=== PATIENT | female | born 1945 | race African-American/Black ===

== ENCOUNTER 2017-05-29 15:03 | Inpatient (IN) ==
--- NOTE | 2017-05-29 17:27 | Hospitalist History & Physical ---
<Elin Tobias - Last Filed: 05/29/17 18:09> Assessment and Plan - Time spent with patient Time spent with patient: Greater than 30 minutes (1) Shortness of breath Status: Acute Assessment and plan: Admit 05/29/17 _ direct admit from [facility] for SOB, increase fatigue, anasarca Stage I Renal Insufficiency - seen in February by Dr Pressley and started on Lasix 40mg daily - patient reports has not helped EKG - (at clinic) - old infarct - repeat EKG SOB - supplemental oxygen therapy, Lasix IV 40mg daily HTN: - will need to reconcile medications once placed in the chart DM - will need to reconcile medications once placed in the chart - sliding scale and accuchecks Anasarca/SOB - will consult cardiology for assistance and greatly appreciate assistance (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 labs Further recommendations of care to follow per Dr Foote 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: Yes (2) Fatigue Status: Acute 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: Yes (3) Anasarca Status: Acute 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: Yes History of Present Illness Chief complaint: shortness of breath, anasarca, fatigue History of present illness: Ms. Jolly is a 72 year old black female w/PMHx DM, HTN presented to [facility] Room 527 as direct admit from [facility] (shan boyd np) for further evaluation of increase fatigue, worsening shortness of breath and anasarca x3-4 days. She denies chest pain, nausea, vomiting, fever, or chills. She denies any problems with urination or bowel movements. Clinic: reports weight in February was 109 and today weight is 130 lbs labs BUN 17 and creatinine 0.85, H&H 9.3 & 29.1, WBC 4.8, Albumin 2.5. 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 CXR: bilateral pleural effusions. Liver panel was reported within normal. She was seen by Dr Pressley in February for Stage I Renal Insufficiency and started on Lasix 40mg daily for increased swelling but patient reports that it has not helped with her swelling. She denies smoking, alcohol or drug use. She ambulates without any assistance. She reports her 2 daughters live with her and 2 grandchildren. 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 Once her medications have been put into the system, they will need to be reviewed and reconciliation to follow. Allergies Allergy/AdvReac Type Severity Reaction Status Date / Time No Known Allergies Allergy Verified 05/29/17 16:33 Medical,Surgical,& Family Hx - Medical History Cardio: History of: Hypertension Endocrine: History of: Diabetes Mellitus (NIDDM) Renal: History of: Renal Problems (Stage I renal insufficiency) - Social History Smoking Status: Never smoker Frequency of Alcohol Use: None Type of Drug Use: None Marital Status: Single Lives With:: Children Functional capacity: independent ambulation 12 point system: reviewed and no additional remarkable complaints except as stated - Constitutional Constitutional: Present: fatigue. Absent: anorexia, chills, fever(s) - Cardiovascular Cardiovascular: Present: dyspnea on exertion, edema (2+ edema bilateral ). Absent: chest pain at rest, chest pain with activity - Gastrointestinal Gastrointestinal: Absent: abdominal pain, nausea, vomiting - Genitourinary Genitourinary: Absent: difficulty urinating, dysuria Exam - Constitutional General appearance: no acute distress - Head Head exam: Present: normal inspection - Eye Eye exam: Present: EOMI Pupils: Present: ANTONIO - Neck Neck exam: Present: normal inspection. Absent: thyromegaly - Respiratory Respiratory exam: Present: clear to auscultation bilaterally. Absent: rales, rhonchi, stridor, wheezes - Cardiovascular Cardiovascular exam: Present: regular rate and rhythm - GI/Abdominal GI/Abdominal exam: Present: normal bowel sounds, distended, soft. Absent: firm , guarding, tenderness, rebound - Extremities Exam Extremities exam: Present: full ROM, edema (2+ edema) - Neurological Exam Neurological exam: Present: alert, oriented X3, CN II-XII intact - Psychiatric Psychiatric exam: Present: normal affect, normal mood. Absent: agitated, anxious - Skin Skin exam: Present: normal color, warm, dry Results - Labs Lab Results: I have reviewed the past 24 hour labs Labs: Labs performed at Clinic [facility] - to be scanned into records Will repeat labs, chest xray - Diagnostic Findings Procedure: Chest x-ray: other (clininc reports bilateral pleural effusions) <Fidel Foote - Last Filed: 05/29/17 18:45> History of Present Illness History of present illness: Ms. Jolly is a 72 year old female Exam - Constitutional Vitals: Period Temp Pulse Resp BP Sys/Galvan Pulse Ox Last 24 Hr 97.3 F 66 20 142/80 95
[2017-05-29] MEDS ORDERED: DEXTROSE 50% 25 GM/50 ML VIAL IV PRN (17:57)
[2017-05-29] MEDS ORDERED: GLUCAGON 1 MG VIAL IM PRN (17:57)
[2017-05-29] MEDS ORDERED: ACETAMINOPHEN 325 MG TABLET PO PRN (18:04)
[2017-05-29] MEDS ORDERED: ONDANSETRON 4 MG/2 ML VIAL IV PRN (18:04)
--- NOTE | 2017-05-29 18:17 | Nephrology Consult Note ---
History of Present Illness Chief complaint: Anasarca History of present illness: Ms. Jolly is a 72 year old female with a history of hypertension diabetes who I have seen in clinic on one visit for lower extremity swelling at that time patient serum creatinine was noted to be 1. She is admitted now with increased swelling and has not gotten relief with oral diuretic therapy. Patient's history of diabetes dates back at least 5-7 years. There is no history of NSAID use. No history of change in medications. Patient reports that the lower extremity swelling has continued to worsen to where she is no swelling up above her navel. She further describes shortness of breath. Of note, patient has a daughter who is a dialysis patient and also deals with dramatic anasarca and difficult to dialyze due to low blood pressure. At this time nephrology been asked to further assess and give input for further workup of the increased swelling. 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 There is no tobacco history. Again no NSAID use history. Recommend SPEP and UPEP KIRSTEN. Agree with CT scan. UA. Allergies Allergy/AdvReac Type Severity Reaction Status Date / Time No Known Allergies Allergy Verified 05/29/17 16:33 Medical,Surgical,& Family Hx - Medical History Cardio: History of: Hypertension Endocrine: History of: Diabetes Mellitus (NIDDM) Renal: History of: Renal Problems (Stage I renal insufficiency) - Surgical History Cardiac Surgeries: Patient Denies: Cardiac Catheterization - Family History Family History: Reports;: Family Diabetes, Family Heart Disease - Social History Smoking Status: Never smoker Frequency of Alcohol Use: None Type of Drug Use: None Review of Systems Constitutional: fatigue, lethargy, no anorexia Cardiovascular: no chest pain at rest Respiratory: dyspnea Gastrointestinal: no abdominal pain Exam - Vital Signs Vital signs: Period Temp Pulse Resp BP Sys/Galvan Pulse Ox Last 24 Hr 97.3 F 66 20 142/80 95 - General Appearance General appearance: fatigue, frail EENT: ATNC Neck: supple Respiratory: clear Cardiology: edema (3+), regular rate, regular rhythm Gastrointestinal: normoactive bowel sounds, no tenderness Integumentary: no rash Neurologic: alert and oriented x3 Musculoskeletal: no clubbing Psychiatric: mood/affect appropriate Assessment and Plan (1) Diabetes Status: Chronic 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: Yes Qualifiers: Diabetes mellitus type: type 2 Chronic kidney disease stage: stage 2 (mild ) (2) Anasarca Status: Acute Assessment and plan: Agree with workup for CT scan. Recommend a UA. Also SPEP and UPEP. As well as an urine KIRSTEN. CEA. CA 125. Add metolazone 5 mg twice daily. Agree with Lasix therapy. 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: Yes (3) Fatigue Status: Acute 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: Yes
[2017-05-29] MEDS ORDERED: ENOXAPARIN 30 MG/0.3 ML SYRINGE SUBCUT SCH (18:30)
[2017-05-29 19:06] LABS: Basophils % 0.5 % (0.0-0.8); Eosinophils # 0.1 10*3/uL (0.0-0.87); Eosinophils % 1.4 % (0.00-10.9); Hematocrit 29.4 VOL% (35.7-47.0); Hemoglobin 9.3 GM/DL (12.0-16.0); Immature Granulocytes % 0.2 %; Immature Granulocytes Absolute 0.01 #; Lymphocytes # 0.7 10*3/uL (1.4-4.0); Lymphocytes % 15.7 % (21.3-54.2); Mean Corpuscular HGB Conc 31.6 GM/DL (32-36); Mean Corpuscular Hemoglobin 26 PG (27-34); Mean Corpuscular Volume 82.6 FL (87-102); Mean Platelet Volume 10.3 FL (9.6-12.0); Monocytes # 0.3 10*3/uL (0.11-0.8); Monocytes % 6.9 % (1.7-12.7); Neutrophils # 3.2 10*3/uL (1.4-7.4); Neutrophils % 75.3 % (38.7-73.9); Platelet Count 271 T/CUMM (130-400); Red Blood Count 3.56 MC/CUMM (3.8-5.5); Red Cell Distribution Width 16.2 % (9.3-17.3); White Blood Count 4.2 T/CUMM (4-12)
[2017-05-29 19:22] LABS: Ammonia < 10 UMOL/L (11-32)
[2017-05-29 19:28] LABS: Alanine Aminotransferase 10 U/L (13-56); Albumin 2.5 G/DL (3.4-5.0); Alkaline Phosphatase 82 U/L (45-117); Aspartate Amino Transferase 18 U/L (0-37); Blood Urea Nitrogen 18 MG/DL (7-18); Calcium 9.4 MG/DL (8.5-10.1); Glucose 75 MG/DL (74-106); Magnesium 2.2 MG/DL (1.8-2.4); Osmolality,Calculated 275.7 MOS/KG (273-304); Potassium 3.9 MMOL/L (3.5-5.1); Sodium 138 MMOL/L (136-145); Total Protein 7.5 G/DL (6.4-8.3)
[2017-05-29 19:29] LABS: Troponin I Only < 0.015 NG/ML (0.00-0.045)
[2017-05-29 19:33] LABS: Risk Ratio 2.26; Thyroid Stimulating Hormone 1.06 uIU/ml (0.358-3.74); VLDL CHOLESTEROL 14.4 MG/DL
[2017-05-29 19:39] LABS: Total Protein 7.5 G/DL (6.4-8.3)
--- NOTE | 2017-05-29 20:24 | CT Report ---
Exam: CT abdomen and pelvis with intravenous contrast Clinical History: 72 years,Female, ascites abdominal pain, generalized Technique: Axial computed tomography images of the abdomen and pelvis with intravenous contrast. All CT scans at this facility use one or more dose reduction techniques. Automated exposure control, MA/KV adjustment per patient size (including targeted exam Square dose is matched to indication) or iterative reconstruction technique Comparison: No relevant comparisons Findings: Lower thorax: Trace bilateral pleural effusions with bibasilar atelectasis. Abdomen: Liver: Unremarkable Gallbladder and bile ducts: Unremarkable. No calcified stones. No ductal dilatation. Pancreas: Pancreas is normal. Spleen: Spleen is normal. Adrenals: No adrenal mass. Kidneys and ureters: Normal in size, echotexture and morphology. No hydronephrosis. No ureteral calculus. Stomach and bowel: No evidence of acute gastritis, colitis or enteritis. No bowel obstruction. Appendix: No primary or secondary signs to suggest appendicitis. Pelvis: Bladder: Decompressed Reproductive: Uterus is enlarged and heterogeneous., Irregular in morphology with extensive calcifications and nodularity Abdomen and pelvis: Intraperitoneal space: Large volume ascites displacing solid organs and bowel Bones/joints: No acute osseous abnormality. Soft tissues: No mass Vasculature: No aortic aneurysm. Atheromatous calcifications noted along the aorta and branch vessels. Lymph nodes: No adenopathy Impression: 1. Large volume ascites displacing the bowel and visceral organs 2. Markedly irregular and enlarged uterus with extensive calcifications. Likely all fibroids. Correlate with dedicated ultrasound PROCEDURE INTERPRETED AT [facility] DEPARTMENT OF RADIOLOGY Final Report Signed by: Samir Gilbert MD
[2017-05-29] MEDS: metOLazone 5 MG TABLET PO SCH (20:53)
[2017-05-29] MEDS: INSULIN LISPRO 100 UNIT/ML SUBCUT SCH (20:53)
[2017-05-29] MEDS: ENOXAPARIN 40 MG/0.4 ML SYRINGE SUBCUT SCH (20:53)
[2017-05-30 03:35] LABS: Basophils % 1.1 % (0.0-0.8); Eosinophils # 0.1 10*3/uL (0.0-0.87); Eosinophils % 2.5 % (0.00-10.9); Hematocrit 27.3 VOL% (35.7-47.0); Hemoglobin 8.7 GM/DL (12.0-16.0); Immature Granulocytes % 0.3 %; Immature Granulocytes Absolute 0.01 #; Lymphocytes # 0.8 10*3/uL (1.4-4.0); Lymphocytes % 20.7 % (21.3-54.2); Mean Corpuscular HGB Conc 31.9 GM/DL (32-36); Mean Corpuscular Hemoglobin 26 PG (27-34); Mean Corpuscular Volume 80.8 FL (87-102); Mean Platelet Volume 9.7 FL (9.6-12.0); Monocytes # 0.4 10*3/uL (0.11-0.8); Monocytes % 11.6 % (1.7-12.7); Neutrophils # 2.3 10*3/uL (1.4-7.4); Neutrophils % 63.8 % (38.7-73.9); Platelet Count 260 T/CUMM (130-400); Red Blood Count 3.38 MC/CUMM (3.8-5.5); Red Cell Distribution Width 16.2 % (9.3-17.3); White Blood Count 3.6 T/CUMM (4-12)
[2017-05-30 04:12] LABS: Magnesium 2.1 MG/DL (1.8-2.4); Osmolality,Calculated 276.7 MOS/KG (273-304); Potassium 3.9 MMOL/L (3.5-5.1)
[2017-05-30 05:28] LABS: Immunoglobulin G (Chem) 2550 MG/DL (700-1600); Total Protein (Chem) 7.5 G/DL (6.4-8.3)
[2017-05-30 05:29] LABS: Immunoglobulin A (Chem) 344 MG/DL (70-400); Immunoglobulin M (Chem) 89 MG/DL (40-230)
[2017-05-30 07:49] LABS: Albumin (SPE) Rel % 40.5 %; Alpha 1 (SPE) 0.3 G/DL (0.1-0.4); Alpha 1 (SPE) Rel % 3.7 %; Alpha 2 (SPE) 0.8 G/DL (0.4-1.0); Alpha 2 (SPE) Rel % 10.9 %; Beta (SPE) 0.9 G/DL (0.5-1.1); Beta (SPE) Rel % 11.4 %; Gamma (SPE) 2.5 G/DL (0.7-1.7); Gamma (SPE) Rel % 33.2 %
--- NOTE | 2017-05-30 08:28 | Nephrology Progress Note ---
Nephrology - PN: Subj Interval history: Ms. Jolly is seen in follow-up of her fluid retention. She has good renal function with a normal creatinine. Her serum albumin is 2.5. She does have tense ascites and 2+ lower extremity edema. The abdomen is tense and I think she would benefit from a therapeutic paracentesis. We will also send that fluid for albumin to compare to her serum albumin. Exam (PN)-Nephrology - Vital Signs Vital signs: Period Temp Pulse Resp BP Sys/Galvan Pulse Ox Last 24 Hr 97.1 F-97.5 F 66-90 15-20 137-142/75-81 95-96 - Lab 05/30/17 02:29 05/30/17 02:29 Most recent lab results Calcium 9.0 MG/DL (8.5-10.1) 05/30/17 02:29 Magnesium 2.1 MG/DL (1.8-2.4) 05/30/17 02:29
[2017-05-30] MEDS: metOLazone 5 MG TABLET PO SCH ×2 (08:59→20:55)
[2017-05-30] MEDS: PANTOPRAZOLE 40 MG TABLET PO SCH (08:59)
[2017-05-30] MEDS: INSULIN LISPRO 100 UNIT/ML SUBCUT SCH ×4 (09:03→20:55)
--- NOTE | 2017-05-30 11:11 | Consultation ---
Assessment and Plan (1) Shortness of breath Status: Acute 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: Yes (2) Fatigue Status: Acute 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: Yes (3) Anasarca Status: Acute 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: Yes (4) Diabetes Status: Chronic 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: Yes Qualifiers: Diabetes mellitus type: type 2 Chronic kidney disease stage: stage 2 (mild ) (5) Enlarged uterus Status: Acute Assessment and plan: Pelvic ultrasound ordered to better assess uterine size, endometrial cavity and adnexa. We will continue to follow. 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: Yes History of Present Illness - Data of Consult Patient: new to practice Consult date: 05/30/17 - Consult Narrative Reason for consult: Rule out APPLE PICKING SUPERVISOR malignancy History of present illness: Ms. Jolly is a 72 year old female postmenopausal female who was admitted secondary to anasarca and wasting. APPLE PICKING SUPERVISOR was consulted secondary to concern for APPLE PICKING SUPERVISOR related malignancies. Has had a CT scan that shows an irregularly enlarged uterus. Patient denies abdominal pain or vaginal bleeding. She reports significant weight loss over the last several months. CC: Fidel Foote MD - Home Medications and Allergies Allergies/Adverse Reactions: Allergies Allergy/AdvReac Type Severity Reaction Status Date / Time No Known Allergies Allergy Verified 05/29/17 16:33 12 point system: reviewed and no additional remarkable complaints except as stated () - Constitutional Constitutional: Present: anorexia, weight loss Medical,Surgical,& Family Hx - Medical History Cardio: History of: Hypertension Endocrine: History of: Diabetes Mellitus (NIDDM) Renal: History of: Renal Problems (Stage I renal insufficiency) - Surgical History Cardiac Surgeries: Patient Denies: Cardiac Catheterization - Family History Family History: Reports;: Family Diabetes, Family Heart Disease - Social History Smoking Status: Never smoker Frequency of Alcohol Use: None Type of Drug Use: None Exam - Constitutional Vitals: Period Temp Pulse Resp BP Sys/Galvan Pulse Ox Last 24 Hr 97.1 F-97.5 F 66-90 14-99 124-158/62-82 94-98 General appearance: no acute distress - Head Head exam: Present: normocephalic - Neck Neck exam: Present: normal inspection - Respiratory Respiratory exam: Present: clear to auscultation bilaterally - Cardiovascular Cardiovascular exam: Present: regular rate and rhythm - GI/Abdominal GI/Abdominal exam: Present: normal bowel sounds, soft, other (Uterus irregularly enlarged approximately 12 week size with very irregular contour. No gross abnormalities noted to the adnexa.) - Extremities Exam Extremities exam: Present: normal inspection - Back Exam Back exam: Present: normal inspection - Neurological Exam Neurological exam: Present: alert, oriented X3 - Psychiatric Psychiatric exam: Present: normal affect, normal mood - Skin Skin exam: Present: normal color, warm Results - Labs CBC & BMP: 05/30/17 02:29 05/30/17 02:29
--- NOTE | 2017-05-30 14:08 | Cardiology Consult Note ---
<Valentine Irwin E - Last Filed: 05/30/17 13:45> Assessment and Plan - Time spent with patient Time spent with patient: Greater than 30 minutes (1) Hypertension Status: Chronic Assessment and plan: SEE PLAN OF CARE LISTED BELOW 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: Yes (2) Shortness of breath Status: Acute Assessment and plan: SEE PLAN OF CARE LISTED BELOW 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: Yes (3) Fatigue Status: Acute Assessment and plan: SEE PLAN OF CARE LISTED BELOW 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: Yes (4) Anasarca Status: Acute Assessment and plan: SEE PLAN OF CARE LISTED BELOW 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: Yes (5) Diabetes Status: Chronic Assessment and plan: SEE PLAN OF CARE LISTED BELOW 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: Yes Qualifiers: Diabetes mellitus type: type 2 Chronic kidney disease stage: stage 2 (mild ) (6) Enlarged uterus Status: Acute Assessment and plan: SEE PLAN OF CARE LISTED BELOW 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: Yes History of Present Illness - Data of Consult Patient: new to practice Consult date: 05/30/17 Requesting Physician: Fidel Foote Primary care physician: Sheri Gtz - Consult Narrative Reason for consult: anasarca, SOB History of present illness: KOSHER BUTCHER: DR. CARD ([facility]) SUMMARY: Ms. Jolly, 72BF, with risk factors significant for: hypertension, diabetes, sedentary lifestyle. Admitted May 29, 2017 for anasarca, worsening shortness of breath and fatigue. Cardiology was consulted for these complaints. Patient reports over the past week she has experienced sudden increase in girth of her abdomen and swelling of her lower extremities. She reports this is been occurring intermittently over the past several months but worsened significantly over the past week. She is not uncomfortable with the distention. She also reports she has been losing weight recently no eating her usual amount of food. She reports she is usually somewhat active and can perform her activities without chest pain, heaviness, tightness. She takes care of her disabled daughter and can perform these activities without complaints concerning for angina. Her shortness of breath has worsened over the past week. Denies fevers or chills. CT abdomen reveals a large volume ascites she has undergone paracentesis this morning. She also has a markedly irregular and enlarged uterus. Dr. Bond Has seen patient this morning and has concern for possible cancer. Pelvic ultrasound has been ordered. Cardiology standpoint, I will order an echocardiogram to evaluate for any cardiac contributions. Venous ultrasound lower extremities, chest x-ray and EKG. She is currently taking Lovenox. Strict I&O and daily weights. Currently taking Zaroxolyn. Will further discuss with Dr. Card and await additional recommendations. MAY 30, 2017: 1. ANASARCA - may be related to an obstructive process. However, will check venous ultrasound of bilateral lower extremities for DVT. She has received 1 dose of IV Lasix. Zaroxolyn continues. Will reinforce importance of strict I&O and daily weights. Echocardiogram 2. ENLARGED UTERUS - Ultrasound of uterus is pending. Dr. Bond is following. 3. HYPERTENSION - well controlled. Will adjust medications accordingly during hospital stay 4. DIABETES - blood glucose levels well controlled. CC: Fidel Foote MD - Home Medications and Allergies Allergies/Adverse Reactions: Allergies Allergy/AdvReac Type Severity Reaction Status Date / Time No Known Allergies Allergy Verified 05/29/17 16:33 Review of systems: REVIEW OF SYSTEMS: - Constitutional Constitutional: Present: Fatigue. Weight loss unintentional. Absent: syncope , anorexia, night sweats - EENT Eyes: Absent: blurry vision, loss of vision, diplopia Ears: Absent: decreased hearing, ear pain, ear discharge - Cardiovascular Cardiovascular: Denies: chest pain with exertion, palpitations. Lower extremity edema bilaterally. Absent: chest pain with deep breath, claudication - Respiratory Respiratory: Present: VIRK, shortness of breath at rest. Absent: wheezing, hemoptysis, change in phlegm color - Gastrointestinal Gastrointestinal: Present: constipation and abdominal fullness. Absent: abdominal pain, hematemesis, hematochezia, melena, change in bowel habits, nausea - Genitourinary Genitourinary: Absent: difficulty urinating, dysuria, urinary hesitancy, flank pain - Musculoskeletal Musculoskeletal: Present: back pain Absent: joint swelling, muscle cramps, muscle weakness - Neurological Neurological: Present: normal gait without frequent falls. Absent: dizziness, hemiparesis - Psychiatric Psychiatric: Absent: anxiety, depression, difficulty concentrating - Endocrine Endocrine: Absent: cold intolerance, heat intolerance, polyuria, polyphagia, polydipsia - Hematologic/Lymphatic Hematologic/Lymphatic: Present: easy bruising. Absent: easy bleeding -Integumentary Integumentary: Absent: lesions, rashes, skin breakdown Medical,Surgical,& Family Hx - Medical History Cardio: History of: Hypertension No history of: CAD Endocrine: History of: Diabetes Mellitus (NIDDM) Renal: History of: Renal Problems (Stage I renal insufficiency) - Surgical History Cardiac Surgeries: Patient Denies: Cardiac Catheterization - Family History Family History: Reports;: Family Diabetes, Family Heart Disease - Social History Smoking Status: Never smoker Have you smoked in the last 12 months: No Frequency of Alcohol Use: None Type of Drug Use: None Physical Examination Vital Signs Temp Pulse Resp BP Pulse Ox 97.3 F L 66 20 142/80 95 05/29/17 16:32 05/29/17 16:32 05/29/17 16:32 05/29/17 16:32 05/29/17 16:32 Exam: General: [Appears well with no apparent distress.] [Pleasant and cooperative. ] [Appears comfortable.] HEENT: [PERRL, normocephalic, atraumatic. Mucous membranes moist. No jaundice noted. Conjunctiva moist and clear, sclerae anicteric] Neck: No obvious JVD/HJR, no thyromegaly or lymphadenopathy noted. No carotid bruit appreciated Cardiac: [Regular rate and rhythm.] [No obvious murmur rub or gallop.] Lungs: [Clear to auscultation without accessory muscle use to assist the respiratory pattern.] Not requiring oxygen Abdomen: Soft, slightly distended. Bowel sounds normoactive. Nontender and nondistended. No abdominal bruit or thrill noted. No masses noted. Musculoskeletal: Mild fluid collection. Decreased range of motion is noted. Extremities: No clubbing, cyanosis noted. [2+ bilateral lower extremity edema noted.] Upper extremity pulses 2+. Lower extremity pulses 2+. Capillary refill less than 3 seconds. Skin: No unusual lesions or rashes. No skin breakdown appreciated. Neuro: Awake, alert and oriented 3. Moves all extremities well without hemiparesis or paralysis. No essential tremor is appreciated. Result/EKG - Labs CBC & BMP: 05/30/17 02:29 05/30/17 02:29 Lab Results: I have reviewed the past 24 hour labs Labs: Laboratory Results - last 24 hr 05/29/17 05/29/17 05/29/17 16:51 18:34 18:35 WBC RBC Hgb Hct MCV MCH MCHC RDW Plt Count MPV Neut % (Auto) Lymph % (Auto) Bates % (Auto) Eos % (Auto) Baso % (Auto) Neut # (Auto) Lymph # (Auto) Bates # (Auto) Eos # (Auto) Baso # (Auto) Immature Gran % Nucleated RBC % Immature Gran # Nucleated RBCs # Immature Plt Fraction INR PT Patient/Control Mix Sodium Potassium Chloride Carbon Dioxide Anion Gap BUN Creatinine GFR Calculation BUN/Creatinine Ratio Glucose POC Glucose 104 Hemoglobin A1c Calculated Osmolality Calcium Magnesium Total Bilirubin AST ALT Alkaline Phosphatase Ammonia Total Creatine Kinase Troponin I B-Natriuretic Peptide Total Protein Albumin Globulin Albumin/Globulin Ratio Triglycerides Cholesterol LDL Cholesterol VLDL Cholesterol HDL Cholesterol Heart Disease Risk Ratio Carcinoembryonic Ag CA 19-9 Antigen 13.9 TSH 3rd Generation Fluid Tot Cell Count Fluid Lymphocytes Peritoneal Albumin Dialysate WBC Dialysate RBC IgG IgG Total 2550 H IgA IgA Total 344 IgM IgM Total 89 Pro Electrophoresis Int See comment Serum Total Protein PEP 7.5 Albumin (PEP) 3.0 L Albumin (relative) 40.5 Ysmvq-5-Cjxpcjbb 0.3 Lnmmn-0-Gkkknsuw rel 3.7 Malet-9-Ipfyxrpe 0.8 Woivi-4-Hizieytj rel 10.9 Igno-1-Vwcuzeth 0.9 Fena-2-Iqzxaehg rel 11.4 Gamma Globulins 2.5 H Gamma Globulins rel 33.2 KIRSTEN Interpretation See comment 05/29/17 05/29/17 05/29/17 18:36 18:37 18:37 WBC RBC Hgb Hct MCV MCH MCHC RDW Plt Count MPV Neut % (Auto) Lymph % (Auto) Bates % (Auto) Eos % (Auto) Baso % (Auto) Neut # (Auto) Lymph # (Auto) Bates # (Auto) Eos # (Auto) Baso # (Auto) Immature Gran % Nucleated RBC % Immature Gran # Nucleated RBCs # Immature Plt Fraction INR 1.0 PT Patient/Control Mix 11.0 Sodium Potassium Chloride Carbon Dioxide Anion Gap BUN Creatinine GFR Calculation BUN/Creatinine Ratio Glucose POC Glucose Hemoglobin A1c Calculated Osmolality Calcium Magnesium Total Bilirubin AST ALT Alkaline Phosphatase Ammonia Total Creatine Kinase Troponin I B-Natriuretic Peptide Total Protein 7.5 Albumin Globulin Albumin/Globulin Ratio Triglycerides 72 Cholesterol 183 LDL Cholesterol 89.0 VLDL Cholesterol 14.4 HDL Cholesterol 81 H Heart Disease Risk Ratio 2.26 Carcinoembryonic Ag CA 19-9 Antigen TSH 3rd Generation 1.060 Fluid Tot Cell Count Fluid Lymphocytes Peritoneal Albumin Dialysate WBC Dialysate RBC IgG 2550 H IgG Total IgA 344 IgA Total IgM 89 IgM Total Pro Electrophoresis Int Serum Total Protein PEP Albumin (PEP) Albumin (relative) Ucchv-6-Pzygjvrk Hxwyr-7-Xbcnragm rel Fmsjn-2-Gfxreptl Xxrao-2-Jepvylfn rel Wdgl-5-Xadsapne Ysre-5-Lixjkeyc rel Gamma Globulins Gamma Globulins rel KIRSTEN Interpretation 05/29/17 05/29/17 05/29/17 18:38 18:38 18:38 WBC 4.2 RBC 3.56 L Hgb 9.3 L Hct 29.4 L MCV 82.6 L MCH 26 L MCHC 31.6 L RDW 16.2 Plt Count 271 MPV 10.3 Neut % (Auto) 75.3 H Lymph % (Auto) 15.7 L Bates % (Auto) 6.9 Eos % (Auto) 1.4 Baso % (Auto) 0.5 Neut # (Auto) 3.2 Lymph # (Auto) 0.7 L Bates # (Auto) 0.3 Eos # (Auto) 0.1 Baso # (Auto) 0.0 Immature Gran % 0.2 Nucleated RBC % 0.0 Immature Gran # 0.01 Nucleated RBCs # 0.00 Immature Plt Fraction 0.0 INR PT Patient/Control Mix Sodium Potassium Chloride Carbon Dioxide Anion Gap BUN Creatinine GFR Calculation BUN/Creatinine Ratio Glucose POC Glucose Hemoglobin A1c Calculated Osmolality Calcium Magnesium Total Bilirubin AST ALT Alkaline Phosphatase Ammonia Total Creatine Kinase Troponin I B-Natriuretic Peptide 101 H Total Protein Albumin Globulin Albumin/Globulin Ratio Triglycerides Cholesterol LDL Cholesterol VLDL Cholesterol HDL Cholesterol Heart Disease Risk Ratio Carcinoembryonic Ag 0.7 CA 19-9 Antigen TSH 3rd Generation Fluid Tot Cell Count Fluid Lymphocytes Peritoneal Albumin Dialysate WBC Dialysate RBC IgG IgG Total IgA IgA Total IgM IgM Total Pro Electrophoresis Int Serum Total Protein PEP Albumin (PEP) Albumin (relative) Lnksy-0-Qzfbneft Iuoju-0-Dyfrchtp rel Bitnz-0-Cfdrkusf Jrbrx-4-Mtkeoifk rel Xfix-8-Upnuvkim Wjzy-2-Ltyuwfkt rel Gamma Globulins Gamma Globulins rel KIRSTEN Interpretation 05/29/17 05/30/17 05/30/17 18:41 02:29 02:29 WBC 3.6 L RBC 3.38 L Hgb 8.7 L Hct 27.3 L MCV 80.8 L MCH 26 L MCHC 31.9 L RDW 16.2 Plt Count 260 MPV 9.7 Neut % (Auto) 63.8 Lymph % (Auto) 20.7 L Bates % (Auto) 11.6 Eos % (Auto) 2.5 Baso % (Auto) 1.1 H Neut # (Auto) 2.3 Lymph # (Auto) 0.8 L Bates # (Auto) 0.4 Eos # (Auto) 0.1 Baso # (Auto) 0.0 Immature Gran % 0.3 Nucleated RBC % 0.0 Immature Gran # 0.01 Nucleated RBCs # 0.00 Immature Plt Fraction 0.0 INR PT Patient/Control Mix Sodium 138 Potassium 3.9 Chloride 102 Carbon Dioxide 31 Anion Gap 8.9 BUN 18 Creatinine 0.70 GFR Calculation 91 BUN/Creatinine Ratio 25.00 H Glucose 75 POC Glucose Hemoglobin A1c 6.0 Calculated Osmolality 275.7 Calcium 9.4 Magnesium 2.2 Total Bilirubin 0.80 AST 18 ALT 10 L Alkaline Phosphatase 82 Ammonia < 10 L Total Creatine Kinase 82 Troponin I < 0.015 B-Natriuretic Peptide Total Protein 7.5 Albumin 2.5 L Globulin 5.0 H Albumin/Globulin Ratio 0.5 L Triglycerides Cholesterol LDL Cholesterol VLDL Cholesterol HDL Cholesterol Heart Disease Risk Ratio Carcinoembryonic Ag CA 19-9 Antigen TSH 3rd Generation Fluid Tot Cell Count Fluid Lymphocytes Peritoneal Albumin Dialysate WBC Dialysate RBC IgG IgG Total IgA IgA Total IgM IgM Total Pro Electrophoresis Int Serum Total Protein PEP Albumin (PEP) Albumin (relative) Ukxhb-9-Fqqymgtr Xdoji-9-Jeqhzxij rel Dkjcy-6-Daardffo Hhuyp-6-Jvxliqha rel Juzc-5-Jteessql Ievu-2-Daazvuzy rel Gamma Globulins Gamma Globulins rel KIRSTEN Interpretation 05/30/17 05/30/17 05/30/17 02:29 09:00 09:03 WBC RBC Hgb Hct MCV MCH MCHC RDW Plt Count MPV Neut % (Auto) Lymph % (Auto) Bates % (Auto) Eos % (Auto) Baso % (Auto) Neut # (Auto) Lymph # (Auto) Bates # (Auto) Eos # (Auto) Baso # (Auto) Immature Gran % Nucleated RBC % Immature Gran # Nucleated RBCs # Immature Plt Fraction INR PT Patient/Control Mix Sodium 138 Potassium 3.9 Chloride 103 Carbon Dioxide 29 Anion Gap 9.9 BUN 18 Creatinine 0.70 GFR Calculation 91 BUN/Creatinine Ratio 25.00 H Glucose 103 POC Glucose 91 Hemoglobin A1c Calculated Osmolality 276.7 Calcium 9.0 Magnesium 2.1 Total Bilirubin AST ALT Alkaline Phosphatase Ammonia Total Creatine Kinase Troponin I B-Natriuretic Peptide Total Protein Albumin Globulin Albumin/Globulin Ratio Triglycerides Cholesterol LDL Cholesterol VLDL Cholesterol HDL Cholesterol Heart Disease Risk Ratio Carcinoembryonic Ag CA 19-9 Antigen TSH 3rd Generation Fluid Tot Cell Count Fluid Lymphocytes Peritoneal Albumin 2.5 Dialysate WBC Dialysate RBC IgG IgG Total IgA IgA Total IgM IgM Total Pro Electrophoresis Int Serum Total Protein PEP Albumin (PEP) Albumin (relative) Ixkot-6-Uowrcvvt Zilys-7-Szqyomka rel Nttwi-2-Zekiznem Btvfd-1-Mzyznyoa rel Tuyw-3-Defelait Vbzy-5-Qaxfxnmh rel Gamma Globulins Gamma Globulins rel KIRSTEN Interpretation 05/30/17 05/30/17 10:10 10:46 WBC RBC Hgb Hct MCV MCH MCHC RDW Plt Count MPV Neut % (Auto) Lymph % (Auto) Bates % (Auto) Eos % (Auto) Baso % (Auto) Neut # (Auto) Lymph # (Auto) Bates # (Auto) Eos # (Auto) Baso # (Auto) Immature Gran % Nucleated RBC % Immature Gran # Nucleated RBCs # Immature Plt Fraction INR PT Patient/Control Mix Sodium Potassium Chloride Carbon Dioxide Anion Gap BUN Creatinine GFR Calculation BUN/Creatinine Ratio Glucose POC Glucose 125 H Hemoglobin A1c Calculated Osmolality Calcium Magnesium Total Bilirubin AST ALT Alkaline Phosphatase Ammonia Total Creatine Kinase Troponin I B-Natriuretic Peptide Total Protein Albumin Globulin Albumin/Globulin Ratio Triglycerides Cholesterol LDL Cholesterol VLDL Cholesterol HDL Cholesterol Heart Disease Risk Ratio Carcinoembryonic Ag CA 19-9 Antigen TSH 3rd Generation Fluid Tot Cell Count 100 Fluid Lymphocytes 100 Peritoneal Albumin Dialysate WBC 1641 [place] [address] IgG IgG Total IgA IgA Total IgM IgM Total Pro Electrophoresis Int Serum Total Protein PEP Albumin (PEP) Albumin (relative) Gyoxg-9-Pbyktuoa Dpakr-8-Opepjwrz rel Phrxo-5-Gyizxnxo Vtmgf-0-Sjbwgldq rel Uzti-5-Zikmlkaa Uxuq-3-Lllhigmf rel Gamma Globulins Gamma Globulins rel KIRSTEN Interpretation - Diagnostic Findings Procedure: CT Abdomen and Pelvis: report reviewed by me <Za Card - Last Filed: 05/30/17 19:39> History of Present Illness - Consult Narrative History of present illness: I have personally interviewed and evaluated the patient, reviewed the chart and discussed medical decision-making with Practitioner Alida. I have read this note and agree with her documentation here in. I have reviewed her echocardiogram which shows preserved systolic function, mild to moderate valvular regurgitations. Overall she appears to have a noncardiac source of her lower extremity edema and pleural effusion. We will sign off, please reconsult for any dynamic cardiac issues that may arise. CC: Fidel Foote MD Physical Examination Vital Signs Temp Pulse Resp BP Pulse Ox 97.3 F L 66 20 142/80 95 05/29/17 16:32 05/29/17 16:32 05/29/17 16:32 05/29/17 16:32 05/29/17 16:32 Result/EKG - Labs CBC & BMP: 05/30/17 02:29 05/30/17 02:29 Labs: Laboratory Results - last 24 hr 05/29/17 05/29/17 05/29/17 14:36 14:36 14:36 WBC RBC Hgb Hct MCV MCH MCHC RDW Plt Count MPV Neut % (Auto) Lymph % (Auto) Bates % (Auto) Eos % (Auto) Baso % (Auto) Neut # (Auto) Lymph # (Auto) Bates # (Auto) Eos # (Auto) Baso # (Auto) Immature Gran % Nucleated RBC % Immature Gran # Nucleated RBCs # Immature Plt Fraction Sodium Potassium Chloride Carbon Dioxide Anion Gap BUN Creatinine GFR Calculation BUN/Creatinine Ratio Glucose POC Glucose Hemoglobin A1c Calculated Osmolality Calcium Magnesium Total Protein CA 19-9 Antigen Urine Color Yellow Urine Appearance Clear Urine pH 5.0 Ur Specific [place] 1.031 Urine Protein Negative Urine Glucose (UA) Negative Urine Ketones Negative Urine Blood Small Urine Nitrate Negative Urine Bilirubin Negative Urine Urobilinogen < 2.0 H Urine Leukocytes Negative Urine RBC <1 Urine WBC 1 Ur Squamous Epith Cells Occasional Hyaline Casts 26 Urine Mucus Occasional Ur Culture Indicated? Not indicated Ur Random Creatinine 68 U Random Total Protein 19 Fluid Tot Cell Count Fluid Lymphocytes Peritoneal Albumin Dialysate WBC Dialysate RBC IgG IgG Total IgA IgA Total IgM IgM Total Pro Electrophoresis Int Serum Total Protein PEP Albumin (PEP) Albumin (relative) Qvlly-5-Wbcjvmqb Gztcf-8-Ouwmcgdf rel Ykeub-4-Epusskzu Nqatc-2-Wxataast rel Xmjh-1-Opkqlrmr Egnk-9-Bhbeblhd rel Gamma Globulins Gamma Globulins rel KIRSTEN Interpretation 05/29/17 05/29/17 05/29/17 18:34 18:35 18:37 WBC RBC Hgb Hct MCV MCH MCHC RDW Plt Count MPV Neut % (Auto) Lymph % (Auto) Bates % (Auto) Eos % (Auto) Baso % (Auto) Neut # (Auto) Lymph # (Auto) Bates # (Auto) Eos # (Auto) Baso # (Auto) Immature Gran % Nucleated RBC % Immature Gran # Nucleated RBCs # Immature Plt Fraction Sodium Potassium Chloride Carbon Dioxide Anion Gap BUN Creatinine GFR Calculation BUN/Creatinine Ratio Glucose POC Glucose Hemoglobin A1c Calculated Osmolality Calcium Magnesium Total Protein 7.5 CA 19-9 Antigen 13.9 Urine Color Urine Appearance Urine pH Ur Specific [place] Urine Protein Urine Glucose (UA) Urine Ketones Urine Blood Urine Nitrate Urine Bilirubin Urine Urobilinogen Urine Leukocytes Urine RBC Urine WBC Ur Squamous Epith Cells Hyaline Casts Urine Mucus Ur Culture Indicated? Ur Random Creatinine U Random Total Protein Fluid Tot Cell Count Fluid Lymphocytes Peritoneal Albumin Dialysate WBC Dialysate RBC IgG 2550 H IgG Total 2550 H IgA 344 IgA Total 344 IgM 89 IgM Total 89 Pro Electrophoresis Int See comment Serum Total Protein PEP 7.5 Albumin (PEP) 3.0 L Albumin (relative) 40.5 Qquaf-5-Lxbgixgp 0.3 Xyzmo-8-Zxmxcshu rel 3.7 Oiorp-0-Ovrdfllj 0.8 Dgxpg-2-Oimsazwc rel 10.9 Xlgi-9-Gacnaqqv 0.9 Ytcy-4-Iiyildpz rel 11.4 Gamma Globulins 2.5 H Gamma Globulins rel 33.2 KIRSTEN Interpretation See comment 05/30/17 05/30/17 05/30/17 02:29 02:29 02:29 WBC 3.6 L RBC 3.38 L Hgb 8.7 L Hct 27.3 L MCV 80.8 L MCH 26 L MCHC 31.9 L RDW 16.2 Plt Count 260 MPV 9.7 Neut % (Auto) 63.8 Lymph % (Auto) 20.7 L Bates % (Auto) 11.6 Eos % (Auto) 2.5 Baso % (Auto) 1.1 H Neut # (Auto) 2.3 Lymph # (Auto) 0.8 L Bates # (Auto) 0.4 Eos # (Auto) 0.1 Baso # (Auto) 0.0 Immature Gran % 0.3 Nucleated RBC % 0.0 Immature Gran # 0.01 Nucleated RBCs # 0.00 Immature Plt Fraction 0.0 Sodium 138 Potassium 3.9 Chloride 103 Carbon Dioxide 29 Anion Gap 9.9 BUN 18 Creatinine 0.70 GFR Calculation 91 BUN/Creatinine Ratio 25.00 H Glucose 103 POC Glucose Hemoglobin A1c 6.0 Calculated Osmolality 276.7 Calcium 9.0 Magnesium 2.1 Total Protein CA 19-9 Antigen Urine Color Urine Appearance Urine pH Ur Specific [place] Urine Protein Urine Glucose (UA) Urine Ketones Urine Blood Urine Nitrate Urine Bilirubin Urine Urobilinogen Urine Leukocytes Urine RBC Urine WBC Ur Squamous Epith Cells Hyaline Casts Urine Mucus Ur Culture Indicated? Ur Random Creatinine U Random Total Protein Fluid Tot Cell Count Fluid Lymphocytes Peritoneal Albumin Dialysate WBC Dialysate RBC IgG IgG Total IgA IgA Total IgM IgM Total Pro Electrophoresis Int Serum Total Protein PEP Albumin (PEP) Albumin (relative) Ezjkg-2-Ullqvbhq Vhywj-9-Sdeudrqu rel Ceymo-9-Uweclvte Dkuqq-7-Ntrmojrb rel Lywm-0-Kdflqbbr Eowv-7-Hqvozxtj rel Gamma Globulins Gamma Globulins rel KIRSTEN Interpretation 05/30/17 05/30/17 05/30/17 09:00 09:03 10:10 WBC RBC Hgb Hct MCV MCH MCHC RDW Plt Count MPV Neut % (Auto) Lymph % (Auto) Bates % (Auto) Eos % (Auto) Baso % (Auto) Neut # (Auto) Lymph # (Auto) Bates # (Auto) Eos # (Auto) Baso # (Auto) Immature Gran % Nucleated RBC % Immature Gran # Nucleated RBCs # Immature Plt Fraction Sodium Potassium Chloride Carbon Dioxide Anion Gap BUN Creatinine GFR Calculation BUN/Creatinine Ratio Glucose POC Glucose 91 Hemoglobin A1c Calculated Osmolality Calcium Magnesium Total Protein CA 19-9 Antigen Urine Color Urine Appearance Urine pH Ur Specific [place] Urine Protein Urine Glucose (UA) Urine Ketones Urine Blood Urine Nitrate Urine Bilirubin Urine Urobilinogen Urine Leukocytes Urine RBC Urine WBC Ur Squamous Epith Cells Hyaline Casts Urine Mucus Ur Culture Indicated? Ur Random Creatinine U Random Total Protein Fluid Tot Cell Count 100 Fluid Lymphocytes 100 Peritoneal Albumin 2.5 Dialysate WBC 1641 [place] RBC [address] IgG IgG Total IgA IgA Total IgM IgM Total Pro Electrophoresis Int Serum Total Protein PEP Albumin (PEP) Albumin (relative) Etbfj-4-Fkuecrbi Hjrwo-1-Auuntlbp rel Ysoor-4-Fhdabqiz Ubnqh-3-Ovvailip rel Ohkl-3-Eigbrinu Zmaw-1-Vybusoca rel Gamma Globulins Gamma Globulins rel KIRSTEN Interpretation 05/30/17 05/30/17 10:46 16:21 WBC RBC Hgb Hct MCV MCH MCHC RDW Plt Count MPV Neut % (Auto) Lymph % (Auto) Bates % (Auto) Eos % (Auto) Baso % (Auto) Neut # (Auto) Lymph # (Auto) Bates # (Auto) Eos # (Auto) Baso # (Auto) Immature Gran % Nucleated RBC % Immature Gran # Nucleated RBCs # Immature Plt Fraction Sodium Potassium Chloride Carbon Dioxide Anion Gap BUN Creatinine GFR Calculation BUN/Creatinine Ratio Glucose POC Glucose 125 H 112 H Hemoglobin A1c Calculated Osmolality Calcium Magnesium Total Protein CA 19-9 Antigen Urine Color Urine Appearance Urine pH Ur Specific [place] Urine Protein Urine Glucose (UA) Urine Ketones Urine Blood Urine Nitrate Urine Bilirubin Urine Urobilinogen Urine Leukocytes Urine RBC Urine WBC Ur Squamous Epith Cells Hyaline Casts Urine Mucus Ur Culture Indicated? Ur Random Creatinine U Random Total Protein Fluid Tot Cell Count Fluid Lymphocytes Peritoneal Albumin Dialysate WBC Dialysate RBC IgG IgG Total IgA IgA Total IgM IgM Total Pro Electrophoresis Int Serum Total Protein PEP Albumin (PEP) Albumin (relative) Ucrqr-2-Erqkfbhd Hltal-2-Ifitcvor rel Fdige-2-Oqgkemmp Xakhp-4-Hkgbsirh rel Caym-7-Vbpdsgpw Ccyo-0-Bsmzhtyr rel Gamma Globulins Gamma Globulins rel KIRSTEN Interpretation
--- NOTE | 2017-05-30 14:45 | Hospitalist Progress Note ---
Assessment and Plan (1) Anasarca Status: Acute Assessment and plan: Continuing evaluation of abdomen and pelvis. Cytology of ascites fluid is pending. 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: Yes (2) Enlarged uterus Status: Acute 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: Yes (3) Hypertension Status: Chronic 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: Yes Hospitalist: Subjective Interval history: The patient is admitted hospital with ascites and lower extremity edema and hypoalbuminemia. Evaluation of abdomen and pelvis for possible tumor is continuing. The patient had [employer] consultation today. CT exam reveals ascites and irregular uterus. Exam - Constitutional Vitals: Period Temp Pulse Resp BP Sys/Galvan Pulse Ox Last 24 Hr 97.1 F-97.5 F 66-90 14-99 124-158/62-82 94-98 General appearance: no acute distress - Respiratory Respiratory exam: Present: clear to auscultation bilaterally - Cardiovascular Cardiovascular exam: Present: regular rate and rhythm - GI/Abdominal GI/Abdominal exam: Present: hypoactive bowel sounds Results - Labs CBC & BMP: 05/30/17 02:29 05/30/17 02:29 Lab Results: I have reviewed the past 24 hour labs
[2017-05-30 14:49] LABS: Apearance,Urine CLEAR (Clear); Bilirubin,Urine Negative (Negative); Blood, Urine Small mg/dL (Negative); Glucose,Urine (UA) Negative (Negative); Hyaline Casts,Urine 26 /LPF (0-3); Ketones,Urine Negative (Negative); Mucus,Urine Occasional /LPF (Occasional); Nitrite,Urine Negative (Negative); Protein,Urine Negative; RBC,Urine <1 /HPF (0-4); Squamous Epithelial Cell,Urine Occasional /HPF (0-10); Urine Color Yellow (Yellow); Urine Specific Gravity 1.031 (1.001-1.035); Urine Urobilinogen < 2.0 EU/DL (0.2-1.0); WBC,Urine 1 /HPF (0-6)
--- NOTE | 2017-05-30 15:00 | Order Completion Report ---
See report scanned to EMR
--- NOTE | 2017-05-30 15:24 | Ultrasound Report ---
Exam: US pelvic complete Date: 05/30/2017 11:02 AM Comparison: None Indication: Pain, progressively worsening Findings: Uterus: Uterus is normal in size measuring 9.6 x 6.1 x 9.5 cm. Marked irregularity and heterogeneity throughout secondary to intramural and subserosal fibroids. Endometrial echo stripe: Nonvisualized secondary to adjacent calcified fibroids with extensive shadowing Right ovary: Nonvisualized Left ovary: Nonvisualized Free fluid: Small amount of fluid within the lower abdomen and pelvis Bladder: Unremarkable Impression: 1. Fibroid uterus 2. Ascites Ultrasound images were captured and stored. PROCEDURE INTERPRETED AT [facility] DEPARTMENT OF RADIOLOGY Final Report Signed by: Samir Gilbert MD
--- NOTE | 2017-05-30 15:30 | Ultrasound Report ---
Exam: US venous doppler LE BI Indication: Pain and swelling Technique: Gilbert scale Doppler with color flow with spectral broadening was performed in routine fashion of the lower extremities per routine protocol Findings: The right common femoral, superficial femoral, popliteal and proximal saphenous saphenous veins are patent with normal waveform phasicity and augmentation as well as complete vessel compressibility. There is no evidence of popliteal or Carrizales's cyst. The left common femoral, superficial femoral, popliteal and proximal saphenous saphenous veins are patent with normal waveform phasicity and augmentation as well as complete vessel compressibility. There is no evidence of popliteal or Carrizales's cyst. Impression: No evidence of deep venous thrombosis within bilateral lower extremity Ultrasound images were captured and stored. PROCEDURE INTERPRETED AT [facility] DEPARTMENT OF RADIOLOGY Final Report Signed by: Samir Gilbert MD
--- NOTE | 2017-05-30 15:36 | XRay Report ---
2 view chest Indication: Shortness of breath Comparison: Not available Findings: Cardiomediastinal contours are within normal limits. Slight elevation of left hemidiaphragm. Trace left and small right pleural effusions with bibasilar atelectasis. No acute osseous abnormalities. Visualized upper abdomen demonstrates no acute pathology. Impression: Elevation left hemidiaphragm with trace left and small right pleural effusions PROCEDURE INTERPRETED AT [facility] DEPARTMENT OF RADIOLOGY Final Report Signed by: Samir Gilbert MD
--- NOTE | 2017-05-30 16:08 | Ultrasound Report ---
US paracentesis abd w/image Indication: New onset ascites. ULTRASOUND-GUIDED PARACENTESIS Description: A formal timeout was performed. Maximum sterile barrier technique was used. Sonographic evaluation shows four-quadrant ascites. The right lower quadrant was prepped and draped in sterile fashion. Under sonographic guidance, using trocar technique, a 6 Afghan pigtail drain catheter was advanced into the ascites. A captured sonographic image documents the position of the needle. The trocar was removed and a total of 6000 cc of bloody ascites was withdrawn. The catheter was then removed and a bandage placed the puncture site. Specimen: Ascites sent to laboratory. Impression: Ultrasound-guided paracentesis. PROCEDURE INTERPRETED AT [facility] DEPARTMENT OF RADIOLOGY Final Report Signed by: Samy Cancino M.D.
--- NOTE | 2017-05-30 17:57 | Order Completion Report ---
See report scanned to EMR
[2017-05-30] MEDS: ENOXAPARIN 40 MG/0.4 ML SYRINGE SUBCUT SCH (20:55)
[2017-05-31] MEDS: INSULIN LISPRO 100 UNIT/ML SUBCUT SCH ×4 (08:43→20:50)
[2017-05-31] MEDS: metOLazone 5 MG TABLET PO SCH ×2 (08:43→20:47)
[2017-05-31] MEDS: PANTOPRAZOLE 40 MG TABLET PO SCH (08:43)
--- NOTE | 2017-05-31 11:34 | Nephrology Progress Note ---
Nephrology - PN: Subj Interval history: She denies shortness of breath. This improved after paracentesis yesterday. Exam (PN)-Nephrology - Vital Signs Vital signs: Period Temp Pulse Resp BP Sys/Galvan Pulse Ox Last 24 Hr 98.2 F-99.0 F 62-85 16-20 113-135/59-76 95-98 Exam: Gen.: Alert and oriented x3. ENT: Pupils equal round reactive to light. EOMs intact. Mucous membranes moist. Neck: Supple. No JVD or bruit. Cardiovascular: Regular rate and rhythm. No murmur rub or gallop Lungs: Clear Abdomen: Soft. Nontender. Extremities: 2+ lower extremity edema - Lab 05/30/17 02:29 05/30/17 02:29 Most recent lab results Calcium 9.0 MG/DL (8.5-10.1) 05/30/17 02:29 Magnesium 2.1 MG/DL (1.8-2.4) 05/30/17 02:29 Assessment and Plan (1) Anasarca Status: Acute Assessment and plan: 72-year-old woman with: * Anasarca. Etiology undetermined. Urinalysis shows no proteinuria. Serum albumin is low * Ascites. Status post paracentesis yesterday * Enlarged uterus. 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
--- NOTE | 2017-05-31 14:14 | Hospitalist Progress Note ---
Assessment and Plan (1) Anasarca Status: Acute Assessment and plan: Continuing evaluation of abdomen and pelvis. Cytology of ascites fluid is pending. 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: Yes (2) Enlarged uterus Status: Acute 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: Yes (3) Hypertension Status: Chronic 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: Yes Hospitalist: Subjective Interval history: The patient has anasarca and ascites on account of hypoalbuminemia. Spot urine does not show much proteinuria. The patient's abdominal distention improved after paracentesis. We await cytology of peritoneal fluid. Exam - Constitutional Vitals: Period Temp Pulse Resp BP Sys/Galvan Pulse Ox Last 24 Hr 98.2 F-99.0 F 62-85 16-20 113-135/59-76 95-98 - Head Head exam: Present: normocephalic - Respiratory Respiratory exam: Present: clear to auscultation bilaterally - Cardiovascular Cardiovascular exam: Present: regular rate and rhythm - GI/Abdominal GI/Abdominal exam: Present: normal bowel sounds, ascites Results - Labs CBC & BMP: 05/30/17 02:29 05/30/17 02:29
[2017-05-31] MEDS: ENOXAPARIN 40 MG/0.4 ML SYRINGE SUBCUT SCH (20:47)
[2017-06-01] MEDS: INSULIN LISPRO 100 UNIT/ML SUBCUT SCH ×4 (08:12→21:00)
[2017-06-01] MEDS: DIGOXIN 0.125 MG TABLET PO SCH (08:12)
[2017-06-01] MEDS: metOLazone 5 MG TABLET PO SCH ×2 (08:12→21:43)
[2017-06-01] MEDS: PANTOPRAZOLE 40 MG TABLET PO SCH (08:12)
--- NOTE | 2017-06-01 10:55 | Hospitalist Progress Note ---
Assessment and Plan (1) Anasarca Status: Acute Assessment and plan: Continuing evaluation of abdomen and pelvis. Cytology of ascites fluid is pending. I am going to add spironolactone to try to reduce her Tranxene to reaccumulating ascites. Blood pressure is stable today. 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: Yes (2) Enlarged uterus Status: Acute 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: Yes (3) Hypertension Status: Chronic 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: Yes Hospitalist: Subjective Interval history: Mrs. Jolly is resting in her room. She is sitting up on the side of the bed. Ascites fluid is beginning to reaccumulate in the abdomen. The patient denies fever chills or shortness of breath. Exam - Constitutional Vitals: Period Temp Pulse Resp BP Sys/Galvan Pulse Ox Last 24 Hr 97.6 F-99.2 F 75-104 16-18 109-137/66-80 95-98 General appearance: no acute distress - GI/Abdominal GI/Abdominal exam: Present: ascites, distended Results - Labs CBC & BMP: 05/30/17 02:29 05/30/17 02:29 Lab Results: I have reviewed the past 24 hour labs
--- NOTE | 2017-06-01 11:43 | Nephrology Progress Note ---
Nephrology - PN: Subj Interval history: She denies shortness of breath today. No GI symptoms Exam (PN)-Nephrology - Vital Signs Vital signs: Period Temp Pulse Resp BP Sys/Galvan Pulse Ox Last 24 Hr 97.6 F-99.2 F 75-104 16-18 109-137/66-80 95-98 Exam: Gen.: Alert and oriented x3. ENT: Pupils equal round reactive to light. EOMs intact. Mucous membranes moist. Neck: Supple. No JVD or bruit. Cardiovascular: Regular rate and rhythm. No murmur rub or gallop Lungs: Clear Abdomen: Soft. Nontender. Positive bowel sounds. No organomegaly Extremities: 2+ edema - Lab 05/30/17 02:29 05/30/17 02:29 Most recent lab results Calcium 9.0 MG/DL (8.5-10.1) 05/30/17 02:29 Magnesium 2.1 MG/DL (1.8-2.4) 05/30/17 02:29 Assessment and Plan (1) Anasarca Status: Acute Assessment and plan: 72-year-old woman with: * Anasarca. Etiology undetermined. Urinalysis shows no proteinuria. Serum albumin is low * Ascites. Status post paracentesis yesterday. Cytology pending * Enlarged uterus. 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
[2017-06-01] MEDS: SPIRONOLACTONE 50 MG TABLET PO SCH (13:04)
[2017-06-01] MEDS: ENOXAPARIN 40 MG/0.4 ML SYRINGE SUBCUT SCH (21:43)
[2017-06-02 05:52] LABS: Basophils % 0.5 % (0.0-0.8); Eosinophils # 0.3 10*3/uL (0.0-0.87); Eosinophils % 6.2 % (0.00-10.9); Hematocrit 26.3 VOL% (35.7-47.0); Hemoglobin 8.5 GM/DL (12.0-16.0); Immature Granulocytes % 0.2 %; Immature Granulocytes Absolute 0.01 #; Lymphocytes # 0.7 10*3/uL (1.4-4.0); Lymphocytes % 16.3 % (21.3-54.2); Mean Corpuscular HGB Conc 32.3 GM/DL (32-36); Mean Corpuscular Hemoglobin 26 PG (27-34); Mean Corpuscular Volume 80.4 FL (87-102); Monocytes # 0.5 10*3/uL (0.11-0.8); Neutrophils # 2.7 10*3/uL (1.4-7.4); Neutrophils % 64.8 % (38.7-73.9); Platelet Count 252 T/CUMM (130-400); Red Blood Count 3.27 MC/CUMM (3.8-5.5); Red Cell Distribution Width 16.2 % (9.3-17.3); White Blood Count 4.2 T/CUMM (4-12)
[2017-06-02 05:57] LABS: PT Patient Result 10.9 SECS
[2017-06-02 06:32] LABS: Calcium 9.3 MG/DL (8.5-10.1); Magnesium 2.2 MG/DL (1.8-2.4); Osmolality,Calculated 278.3 MOS/KG (273-304); Potassium 3.7 MMOL/L (3.5-5.1)
[2017-06-02] MEDS: PANTOPRAZOLE 40 MG TABLET PO SCH (08:58)
[2017-06-02] MEDS: SPIRONOLACTONE 50 MG TABLET PO SCH (08:58)
[2017-06-02] MEDS: DIGOXIN 0.125 MG TABLET PO SCH (08:59)
[2017-06-02] MEDS: metOLazone 5 MG TABLET PO SCH ×2 (08:59→20:34)
[2017-06-02] MEDS: INSULIN LISPRO 100 UNIT/ML SUBCUT SCH ×4 (09:04→20:34)
[2017-06-02] MEDS ORDERED: ERTAPENEM 1,000 MG in SODIUM CHLORIDE 0.9% 50 ML IV SCH (12:00)
--- NOTE | 2017-06-02 16:13 | OB/GYN Progress Note ---
Assessment and Plan (1) Shortness of breath Status: Acute 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: Yes (2) Fatigue Status: Chronic 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: Yes (3) Anasarca Status: Acute 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: Yes (4) Diabetes Status: Chronic 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: Yes Qualifiers: Diabetes mellitus type: type 2 Chronic kidney disease stage: stage 2 (mild ) (5) Enlarged uterus Status: Acute Assessment and plan: Pelvic ultrasound ordered to better assess uterine size, endometrial cavity and adnexa. We will continue to follow. Review of pelvic ultrasound revealed a 9 x 6 x 9 cm uterus with no reference to enlargement of the adnexa. Patient is found to have questionable subserosal fibroids. Cytology pending from paracentesis. CA 125 elevated however this is nondescript test that is not conclusive for SAMPLE SAWYER involvement or origin. I would recommend an abdominal MRI and pelvis MRI with and without contrast to better assist the ovaries bilaterally. At this time a working diagnosis would include a primary peritoneal carcinoma with a possibility for SAMPLE SAWYER malignancy however further workup is necessary. Patient will most likely require a SAMPLE SAWYER oncologist for further workup depending upon the cytology findings and MRI reports. 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: no complaints Exam BOOK JACKET COVER MACHINE OPERATOR - Constitutional Vitals: Vital Signs Temp Pulse Pulse Resp BP Pulse Ox 06/02/17 16:07 98.3 F 82 18 144/78 95 06/02/17 14:52 97.8 F 76 18 132/78 95 06/02/17 11:01 98.1 F 77 18 149/84 97 06/02/17 08:59 76 06/02/17 07:50 98.3 F 80 18 135/80 95 06/02/17 04:55 17 06/02/17 03:57 98.8 F 79 16 122/66 98 06/02/17 03:04 16 06/02/17 00:57 17 06/01/17 23:19 99.6 F 84 16 126/71 98 06/01/17 19:40 98.4 F 78 18 146/79 98 General appearance: no acute distress - Neck Neck exam: Present: normal inspection - Respiratory Respiratory exam: Present: clear to auscultation bilaterally - Cardiovascular Cardiovascular exam: Present: regular rate and rhythm - GI/Abdominal GI/Abdominal exam: Present: normal bowel sounds, soft - Extremities Exam Extremities exam: Present: normal inspection Results - Labs CBC & BMP: 06/02/17 05:12 06/02/17 05:12
[2017-06-02 17:16] LABS: Total Protein 6.1 G/DL (6.4-8.3)
--- NOTE | 2017-06-02 18:05 | Hospitalist Progress Note ---
Assessment and Plan (1) Ascites Status: Acute Assessment and plan: Uterine fibroids noted on pelvic ultrasound. Will get MRI of the abdomen and pelvis with contrast looking for uterine or ovarian mass. CA 125 very elevated at 575, Dr. Glover consulting. Tap very bloody, no abx needed 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: Yes (2) Diabetes Status: Chronic Assessment and plan: hgb a1c 6, bs controlled 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: Yes Qualifiers: Diabetes mellitus type: type 2 Chronic kidney disease stage: stage 2 (mild ) (3) Hypertension Status: Chronic Assessment and plan: controlled, no beta or ca channel blockers 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: Yes (4) Sinus arrhythmia Status: Acute Assessment and plan: Will ask Dr. Jimenez to look at EKG from 05/30 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: Yes Hospitalist: Subjective Interval history: Patient has severe ascites. Cytology is suggestive of adenocarcinoma either from ovarian or uterine. Her CA 19-9 Within normal limits but her CA 125 very elevated at over 500. Results discussed with Dr. Villa. Patient's symptoms other than the ascites is atypical. Dr. Villa would like to get an MRI of her abdomen and pelvis with contrast. Exam - Constitutional Vitals: Period Temp Pulse Resp BP Sys/Galvan Pulse Ox Last 24 Hr 97.8 F-99.6 F 76-84 16-18 122-149/66-84 95-98 Exam: Heart Rate-[RRR] Lungs-[CTAB] GI-[+bs soft, ascites still present Ext-[2+ edema] Neuro [Motor 5/5], [alert and oriented times 3] psych [normal mood and affect] General [no acute distress] Results - Labs CBC & BMP: 06/02/17 05:12 06/02/17 05:12 Lab Results: I have reviewed the past 24 hour labs Labs: WBCs 1641 but RBCs 64,000 824. All lymphocytes. No cultures done. - Diagnostic Findings Procedure: Ultrasound: report reviewed by me (Echo cardiogram of the heart rate 65 EF with grade 1/4 diastolic dysfunction and LVH. Moderate mitral regurg, no evidence of DVT, fibroid uterus)
--- NOTE | 2017-06-02 18:15 | Pathology Report from [facility] ---
[facility] [place] ACCESSION # : [id number] PATIENT NAME : Juanita Jolly ORDERING DR : MEL BELTRAN MD CLINICAL HX: Peritoneal Fluid POST-OP DX: Same SPECIMEN INFO: Fluid,Peritoneal - 1000 mls reddish brown, cloudy CLASS: V CLASS COMMENTS: Metastatic adenocarcinomaCELL BLOCK: Same; CA125+, Calretinin- , ER-; C/W Ovarian primary CLASS LEGEND: CLASS 0 Material inadequate for diagnosis because of (see comment) CLASS I Absence of atypical or abnormal cells CLASS II Atypical Cytology but no evidence of malignancy CLASS III Cytology suggestive of but not conclusive for malignancy CLASS IV Cytology strongly suggestive of malignancy CLASS V Cytology conclusive for malignancy COLLECTED DATE: 05/30/2017 [facility] [place] REPORT DATE: 06/02/2017 ELECTRONICALLY SIGNED BY: Ernesto Beebe III, M.D. 06/02/2017 - 13:46:05 [email or web address]
--- NOTE | 2017-06-02 19:07 | Nephrology Progress Note ---
Nephrology - PN: Subj Interval history: Patient is resting comfortably. She states her lower extremity swelling has improved. She is getting further workup with an MRI of the abdomen done on tomorrow. Serum creatinine has been stable at 0.6. Exam (PN)-Nephrology - Vital Signs Vital signs: Period Temp Pulse Resp BP Sys/Galvan Pulse Ox Last 24 Hr 97.8 F-99.6 F 76-84 16-18 122-149/66-84 95-98 - General Appearance General appearance: fatigue, frail EENT: ATNC Neck: supple Respiratory: clear Cardiology: no edema, regular rate, regular rhythm Gastrointestinal: normoactive bowel sounds, no tenderness Neurologic: alert and oriented x3 Musculoskeletal: no clubbing - Lab 06/02/17 05:12 06/02/17 05:12 Most recent lab results Calcium 9.3 MG/DL (8.5-10.1) 06/02/17 05:12 Magnesium 2.2 MG/DL (1.8-2.4) 06/02/17 05:12 Assessment and Plan (1) Diabetes Status: Chronic 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: Yes Qualifiers: Diabetes mellitus type: type 2 Chronic kidney disease stage: stage 2 (mild ) (2) Anasarca Status: Acute Assessment and plan: Agree with Lasix therapy. 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: Yes (3) Fatigue Status: Chronic 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: Yes
[2017-06-02] MEDS: ENOXAPARIN 40 MG/0.4 ML SYRINGE SUBCUT SCH (20:34)
[2017-06-02] MEDS: CARVEDILOL 3.125 MG TABLET PO SCH (20:34)
[2017-06-03 05:50] LABS: Immunoglobulin A (Chem) 273 MG/DL (70-400); Immunoglobulin G (Chem) 1920 MG/DL (700-1600); Immunoglobulin M (Chem) 71 MG/DL (40-230); Total Protein (Chem) 6.1 G/DL (6.4-8.3)
[2017-06-03 07:51] LABS: Immuno Free Light Chain Lambda 4.71 MG/DL (0.57-2.63); Immuno Free Light Chain Ratio 1.38 MG/DL (0.26-1.65)
--- NOTE | 2017-06-03 08:04 | Oncology Consult Note ---
History of Present Illness History of present illness: Ms. 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 Cytologies came back yesterday afternoon after I had seen the patient's chart and reviewed some of it. I did not have the pathology report back at the time that I initially reviewed the patient's chart. The report indicates ovarian cancer although Dr. Bond She has a history of diabetes mellitus and hypertension as well as bilateral pleural effusions and increasing dyspnea. A CT of her abdomen and pelvis has demonstrated a large volume of ascites displacing the bowel and visceral organs. There is also marked irregularity and enlargement of the uterus. Tumor markers on this lady included a CEA level of 0.7 with a CA-19-9 of 13.9 and a CA 125 of 575. These were drawn May 29, 2017. She has a monoclonal spike and evaluation of it is in progress. I have ordered BRCA 1 and BRCA2 screening since this may affect the way her ovarian cancer is treated. Primary peritoneal carcinomas are treated as ovarian carcinoma was because of behavior is very similar and these develop, presumably as cell rests, with the behavior being primarily that of a carcinoma of ovarian artery region. Past medical history: Allergies: No known allergies She has a history of hypertension and diabetes mellitus but no other significant illnesses. She has undergone cardiac catheterization. Family history is negative for malignancy in any first-degree relatives Social history: She has never smoked ROS Gen.: She first began feeling ill a couple months ago. Her appetite has been diminished for at least several weeks. Eyes: No history of chronic disease, infections or visual loss. ENT: No history of chronic infections, epistaxis, chronic sore throat Lungs: No history of asthma, emphysema, hemoptysis, chronic pleurisy or long- term or chronic infections Cardiovascular: No history of angina, coronary artery disease, congestive heart failure, cardiovascular surgery or DVT/VTE GI: No history of upper or lower GI bleeding, melena, dysphagia, odynophagia, liver disease, gallbladder disease or pancreatic disease. : No prior history of gynecologic malignancy. No history of kidney stones, chronic kidney infections or hematuria. Musculoskeletal: She has been having some pain in one knee, I believe it was the right side. Otherwise no history of chronic bone or joint pain or focal muscle atrophy or bone or joint deformity. Neurologic: No history of seizures, convulsions or paralysis. Psychiatric: No history of chronic psychiatric illness or psychiatric medications. Lymphatic: No history of significant or long-term lymphadenopathy Hematologic: No history of anemia, bleeding disorders or blood dyscrasias or long-term elevation or depression white cell count or petechiae. Skin: No history of chronic skin infections or rashes or significant skin lesions. Physical examination: Emaciated and cachectic. General: The patient appears chronically ill but actually is in no acute distress presently while lying supine. Eyes: Normal lids and conjunctivae. ENT: She is edentulous. Her oral mucosa and pharynx are normal. Her hearing appears normal. Neck: Her trachea is midline. I feel no masses. Her thyroid appears normal. Cardiovascular: Her heart rhythm is regular without murmur, gallop or rub. There is no jugular venous distention, clubbing or cyanosis. Abdomen: Her abdomen is not tense or distended but she appears to have some ascites. I cannot palpate any definite masses and she has no apparent tenderness. Musculoskeletal: She has emaciated, cachectic and has generalized muscle wasting but I find no focal muscle atrophy or bone or joint deformity. Neurologic: Cranial nerves II through XII are intact. Psychiatric: She appears to be fully oriented to time, place, person and situation. Nodes: No submandibular, cervical, supraclavicular or axillary adenopathy. Skin: Cursory examination is normal. 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 I will discuss this with Dr. Wheeler. I am waiting to give the patient information on ovarian cancer diagnosis and treatment but I would plan to treat with Taxol and carboplatin initially. Also I am testing for BRCA1 and BRCA2 mutations since treatment might be affected if she test positive. Emaciation, cachexia and malnutrition: Diabetes mellitus: Hypertensive cardiovascular disease. Home Medications Medication Instructions Recorded Confirmed Type Carvedilol 25 mg PO BID 05/31/17 05/31/17 History Digoxin Tab [Lanoxin Tab] 0.125 mcg PO DAILY 05/31/17 05/31/17 History Glimepiride 1 mg PO DAILY W/BREAKFAST 05/31/17 05/31/17 History Losartan/Hydrochlorothiazide 1 each PO DAILY 05/31/17 05/31/17 History [Losartan-Hctz 100-25 mg Tab] Spironolactone 25 mg PO DAILY 05/31/17 05/31/17 History cloNIDine HCl [Clonidine HCl] 0.2 mg PO BID 05/31/17 05/31/17 History Allergies Allergy/AdvReac Type Severity Reaction Status Date / Time No Known Allergies Allergy Verified 05/29/17 16:33 Medical,Surgical,& Family Hx - Medical History Cardio: History of: Hypertension No history of: CAD Endocrine: History of: Diabetes Mellitus (NIDDM) Renal: History of: Renal Problems (Stage I renal insufficiency) - Surgical History Cardiac Surgeries: Patient Denies: Cardiac Catheterization - Family History Family History: Reports;: Family Diabetes, Family Heart Disease - Social History Smoking Status: Never smoker Frequency of Alcohol Use: None Type of Drug Use: None Exam - Constitutional Vitals: Period Temp Pulse Resp BP Sys/Galvan Pulse Ox Last 24 Hr 97.8 F-98.8 F 67-88 16-18 125-149/73-84 95-97 Results - Labs CBC & BMP: 06/02/17 05:12 06/02/17 05:12
--- NOTE | 2017-06-03 08:11 | OB/GYN Progress Note ---
Assessment and Plan (1) Shortness of breath Status: Acute 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: Yes (2) Fatigue Status: Chronic 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: Yes (3) Anasarca Status: Acute 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: Yes (4) Diabetes Status: Chronic 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: Yes Qualifiers: Diabetes mellitus type: type 2 Chronic kidney disease stage: stage 2 (mild ) (5) Enlarged uterus Status: Acute Assessment and plan: Pelvic ultrasound ordered to better assess uterine size, endometrial cavity and adnexa. We will continue to follow. Review of pelvic ultrasound revealed a 9 x 6 x 9 cm uterus with no reference to enlargement of the adnexa. Patient is found to have questionable subserosal fibroids. Cytology pending from paracentesis. CA 125 elevated however this is nondescript test that is not conclusive for MUD ANALYSIS SUPERVISOR involvement or origin. I would recommend an abdominal MRI and pelvis MRI with and without contrast to better assist the ovaries bilaterally. At this time a working diagnosis would include a primary peritoneal carcinoma with a possibility for MUD ANALYSIS SUPERVISOR malignancy however further workup is necessary. Patient will most likely require a MUD ANALYSIS SUPERVISOR oncologist for further workup depending upon the cytology findings and MRI reports. 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: Yes (6) Ascites Status: Acute Assessment and plan: Cytology results back with evidence for Ovarian Ca as primary despite no visible ovarian masses via ultrasound and CT. MRI still pending. Nonetheless, as this appears to be a metastatic disease process the patient will need follow- up from the MUD ANALYSIS SUPERVISOR oncologist available in [facility]. 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
[2017-06-03] MEDS: SPIRONOLACTONE 50 MG TABLET PO SCH (08:39)
[2017-06-03] MEDS: INSULIN LISPRO 100 UNIT/ML SUBCUT SCH ×4 (08:39→21:12)
[2017-06-03 08:40] LABS: Albumin (SPE) 2.4 G/DL (3.2-5.3); Albumin (SPE) Rel % 40.1 %; Alpha 1 (SPE) 0.3 G/DL (0.1-0.4); Alpha 1 (SPE) Rel % 4.2 %; Alpha 2 (SPE) 0.7 G/DL (0.4-1.0); Alpha 2 (SPE) Rel % 12.3 %; Beta (SPE) 0.7 G/DL (0.5-1.1); Beta (SPE) Rel % 12.1 %; Gamma (SPE) 1.9 G/DL (0.7-1.7); Gamma (SPE) Rel % 31.3 %
[2017-06-03] MEDS: PANTOPRAZOLE 40 MG TABLET PO SCH (08:40)
[2017-06-03] MEDS: CARVEDILOL 3.125 MG TABLET PO SCH ×2 (08:40→21:14)
[2017-06-03] MEDS: metOLazone 5 MG TABLET PO SCH ×2 (08:40→21:14)
[2017-06-03] MEDS: DIGOXIN 0.125 MG TABLET PO SCH (08:40)
--- NOTE | 2017-06-03 08:58 | Nephrology Progress Note ---
Nephrology - PN: Subj Interval history: Patient is resting comfortably. She states her lower extremity swelling has improved. She is getting further workup with an MRI of the abdomen done on tomorrow. Serum creatinine has been stable at 0.6. 06/03/2017. The patient is resting comfortably. She has had further workup that reveals evidence of metastatic gynecologic cancer. She has has a pending MRI today. Renal function has been stable. Hemodynamically stable. Exam (PN)-Nephrology - Vital Signs Vital signs: Period Temp Pulse Resp BP Sys/Galvan Pulse Ox Last 24 Hr 97.8 F-98.8 F 67-88 16-18 125-149/69-84 93-97 - General Appearance General appearance: well-developed, well-nourished EENT: ATNC Neck: supple Respiratory: clear Cardiology: no edema, regular rate, regular rhythm Gastrointestinal: normoactive bowel sounds, no tenderness Neurologic: alert and oriented x3, CN 3-12 intact Musculoskeletal: no clubbing Psychiatric: mood/affect appropriate, cooperative - Lab 06/02/17 05:12 06/02/17 05:12 Most recent lab results Calcium 9.3 MG/DL (8.5-10.1) 06/02/17 05:12 Magnesium 2.2 MG/DL (1.8-2.4) 06/02/17 05:12 Assessment and Plan (1) Diabetes Status: Chronic 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: Yes Qualifiers: Diabetes mellitus type: type 2 Chronic kidney disease stage: stage 2 (mild ) (2) Anasarca Status: Acute Assessment and plan: Agree with Lasix therapy. 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: Yes (3) Fatigue Status: Chronic 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: Yes
--- NOTE | 2017-06-03 12:52 | Magnetic Resonance Report ---
Exam: MR pelvis wo/w con Date: 06/03/2017 12:00 AM Comparison: CT abdomen and pelvis 05/29/2017 Indication: Ascites Technique:[Multiple acquisitions were obtained including sagittal T2 and FERNY scans before and after injection of 9 cc of Dotarem, coronal FERNY scans with contrast, and axial T2, T1, and FERNY the scans before and after injection contrast. Some of the scans were obtained with fat saturation. Scans were obtained on an open 1.2 Jes magnet.] Findings: Significant ascites with some associated thickening of the mesentery. The uterus is enlarged for the patient's stated age measuring 103 x 95 x 60 mm. Multiple masses are noted which demonstrate calcifications on CT. The largest mass measures 65 mm posteriorly on the left side. The endometrial stripe is distorted with minimal fluid noted superiorly measuring 6 mm in depth. Structure which probably represents the left ovary which measures 19 x 16 x 15 mm. Irregular solid mass in the posterior right adnexal location measuring 45 x 40 x 31 mm. This finding is difficult to separate from the uterus and abuts the rectum. Additional cystic findings are noted projecting between the uterus and the urinary bladder with the largest finding measuring 22 mm. Impression: Irregular 45 x 40 x 31 mm right adnexal mass felt consistent with ovarian carcinoma. This finding is difficult to separate from the enlarged uterus which contains multiple leiomyomata and the adjacent wall of the rectum. There is associated significant ascites and omental implants. PROCEDURE INTERPRETED AT [facility] DEPARTMENT OF RADIOLOGY Final Report Signed by: Dr. Pebbles Xavier
--- NOTE | 2017-06-03 12:59 | Hospitalist Progress Note ---
Assessment and Plan (1) Ascites Status: Acute Assessment and plan: Uterine fibroids noted on pelvic ultrasound. Will get MRI of the abdomen and pelvis with contrast looking for uterine or ovarian mass. CA 125 very elevated at 575, Cytology is adenoCA stage [address] Del Toro has seen her. Dr. 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 Exam - Constitutional Vitals: Period Temp Pulse Resp BP Sys/Galvan Pulse Ox Last 24 Hr 97.8 F-98.8 F 67-88 16-18 125-144/69-80 93-97 Exam: Heart Rate-[RRR] Lungs-[CTAB] GI-[+bs soft, ascites still present Ext-[1+ edema, osiel hose ] Neuro [Motor 5/5], [alert and oriented times 3] psych [normal mood and affect] General [no acute distress] Results - Labs CBC & BMP: 06/02/17 05:12 06/02/17 05:12 Lab Results: I have reviewed the past 24 hour labs - Diagnostic Findings Procedure: MRI: report reviewed by me
--- NOTE | 2017-06-03 13:10 | Order Completion Report ---
See report scanned to EMR
--- NOTE | 2017-06-03 13:59 | General Surgery Consult Note ---
Assessment and Plan (1) Ovarian cancer Status: Acute Assessment and plan: Patient with ovarian cancer with anticipated initiation of chemotherapy; she expresses wishes to proceed if this is recommended treatment. We will hold patient n.p.o. after midnight with plans to proceed tomorrow pending confirmation of this plan with oncology. 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: Yes History of Present Illness Chief complaint: New Ca Diagnosis History of present illness: Ms. Jolly is a 72 year old female with past medical history of diabetes mellitus, hypertension, and stage I CKD who was recently admitted with shortness of breath and found to have large volume ascites with new diagnosis of metastatic ovarian carcinoma. It is anticipated she will begin chemotherapy and general surgery consultation was requested for Mediport placement. Patient denies any history of requiring central line placement, her neck or chest trauma or surgery. She denies pulmonary or cardiac history. She reports she is overall feeling well today and tolerating oral intake. She is being followed by FOOT SPECIALIST, oncology, nephrology, and cardiology. She has undergone paracentesis with 6000 cc of bloody ascites removed and pathology indicates metastatic adenocarcinoma of ovarian origin. MRI of the abdomen and pelvis identified an irregular adnexal mass consistent with ovarian carcinoma. Much of history obtained a review of medical records. Home Medications Medication Instructions Recorded Confirmed Type Carvedilol 25 mg PO BID 05/31/17 05/31/17 History Digoxin Tab [Lanoxin Tab] 0.125 mcg PO DAILY 05/31/17 05/31/17 History Glimepiride 1 mg PO DAILY W/BREAKFAST 05/31/17 05/31/17 History Losartan/Hydrochlorothiazide 1 each PO DAILY 05/31/17 05/31/17 History [Losartan-Hctz 100-25 mg Tab] Spironolactone 25 mg PO DAILY 05/31/17 05/31/17 History cloNIDine HCl [Clonidine HCl] 0.2 mg PO BID 05/31/17 05/31/17 History Allergies Allergy/AdvReac Type Severity Reaction Status Date / Time No Known Allergies Allergy Verified 05/29/17 16:33 Medical,Surgical,& Family Hx - Medical History Cardio: History of: Hypertension No history of: CAD Endocrine: History of: Diabetes Mellitus (NIDDM) Renal: History of: Renal Problems (Stage I renal insufficiency) - Surgical History Cardiac Surgeries: Patient Denies: Cardiac Catheterization - Family History Family History: Reports;: Family Diabetes, Family Heart Disease - Social History Smoking Status: Never smoker Frequency of Alcohol Use: None Type of Drug Use: None - Constitutional Constitutional: Absent: chills, fever(s) - Cardiovascular Cardiovascular: Absent: chest pain at rest, chest pain with activity, orthopnea - Respiratory Respiratory: Absent: cough, wheezing - Gastrointestinal Gastrointestinal: Absent: abdominal pain, nausea, vomiting Hematologic/Lymphatic: Absent: easy bleeding, easy bruising Exam - Constitutional Vitals: Period Temp Pulse Resp BP Sys/Galvan Pulse Ox Last 24 Hr 97.5 F-98.8 F 64-88 16-18 125-146/69-80 93-99 General appearance: cachectic, other (Temporal wasting) - Head Head exam: Present: atraumatic, other - ENT Mouth exam: Present: other (Edentulous) - Neck Neck exam: Present: trachea midline - Respiratory Respiratory exam: Present: clear to auscultation bilaterally - Cardiovascular Cardiovascular exam: Present: RRR - GI/Abdominal GI/Abdominal exam: Present: normal bowel sounds, soft. Absent: tenderness - Extremities Exam Extremities exam: Absent: calf tenderness, edema - Neurological Exam Neurological exam: Present: alert, oriented X3 Speech: Present: normal - Skin Skin exam: Present: normal color, warm Results - Labs CBC & BMP: 06/02/17 05:12 06/02/17 05:12 Lab Results: I have reviewed the past 24 hour labs Labs: Peritoneal fluid pathology with metastatic adenocarcinoma; ovarian primary - Impressions Imaging reviewed as above
--- NOTE | 2017-06-03 15:05 | CT Report ---
CT the chest with intravenous contrast. Indication: Ascites and ovarian mass. Axial images were obtained with sagittal and coronal 2-D reconstructions. 80 cc Omni 350. There is generalized subcutaneous edema. There is a large amount of ascites present. Abdominal findings have been previously described by CT and MRI and will not be further discussed on this exam. There are medium-sized bilateral pleural effusions. The thyroid gland is enlarged. The right lobe contains a 2.8 cm solid mass. There is no supraclavicular or axillary lymphadenopathy. The diaphragms are elevated from the abdominal pathology. The heart size is normal. There is no pericardial effusion. There is coronary artery calcification. The thoracic aorta contains calcification. It is of normal caliber. There is no hilar or mediastinal lymphadenopathy. Mild degenerative changes of the spinal column. Impression: 1. Moderate bilateral pleural effusions. 2. Mild bilateral basilar atelectasis. 3. Atherosclerosis. 4. Enlarged thyroid gland containing a 2.8 cm solid mass in the right lobe, which needs further evaluation with ultrasound and probably also tissue sampling. The CT exam was performed using one or more of the following dose reduction techniques: Automated exposure control, adjustment of the mA and/or kV according to patient size, or use of iterative reconstruction technique. PROCEDURE INTERPRETED AT [facility] DEPARTMENT OF RADIOLOGY Final Report Signed by: Dr. Laurita Mcdaniel
[2017-06-03] MEDS: ENOXAPARIN 40 MG/0.4 ML SYRINGE SUBCUT SCH (21:14)
--- NOTE | 2017-06-03 21:15 | Cardiology Progress Note ---
I, Dianna Tejeda, ILYA, am scribing for, and in the presence of, Ildefonso Ding MD 21:14. Assessment and Plan - Time spent with patient Time spent with patient: Greater than 30 minutes (record review, assessment, and documentation) (1) Abnormal EKG Status: Chronic Assessment and plan: SEE PLAN LISTED BELOW On review of today's EKG and other rhythm strips, I do not see Mobitz type II second-degree AV block. It appears to be more of a sinus arrhythmia Continue current meds Okay with me for treatment of her ovarian cancer and ascites you deem best I went over my thoughts with the patient. She voiced understanding No need for pacemaker at this point. 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: Yes (2) Diabetes Status: Chronic Assessment and plan: SEE PLAN LISTED BELOW 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: Yes Qualifiers: Diabetes mellitus type: type 2 Chronic kidney disease stage: stage 2 (mild ) (3) Hypertension Status: Chronic Assessment and plan: SEE PLAN LISTED BELOW 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: Yes (4) Anasarca Status: Resolved Assessment and plan: SEE PLAN LISTED BELOW 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: Yes (5) Enlarged uterus Status: Acute Assessment and plan: SEE PLAN LISTED BELOW 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: Yes Cardiology - PN: Subj Interval history: INFORMATION SYSTEMS PROFESSOR: DR. PORTILLO (NEW) SUMMARY: Ms. Jolly, 72BF, with risk factors significant for: hypertension, diabetes, sedentary lifestyle. Admitted May 29, 2017 for anasarca, worsening shortness of breath and fatigue. Cardiology was consulted for these complaints. Patient reports over the past week she has experienced sudden increase in girth of her abdomen and swelling of her lower extremities. She reports this is been occurring intermittently over the past several months but worsened significantly over the past week. She is not uncomfortable with the distention. She also reports she has been losing weight recently no eating her usual amount of food. She reports she is usually somewhat active and can perform her activities without chest pain, heaviness, tightness. She takes care of her disabled daughter and can perform these activities without complaints concerning for angina. Her shortness of breath has worsened over the past week. Denies fevers or chills. Echocardiogram 05/30/17: revealed EF 65%, grade 1 diastolic dysfunction, mild concentric LVH, mod MR, mild AV calcification without stenosis, mod TR, large left pleural effusion. CT abdomen reveals a large volume ascites she has undergone paracentesis, cytology with evidence for Ovarian Ca. MRI results of pelvis pending. Oncology consulted for evaluation. Cardiology reconsulted for EKG results from 05/30/17, interpreted as sinus arrhythmia with borderline 1st degree AV block. Most recent telemetry strips reveal sinus rhythm with a rate in the 70-80's. There are telemetry strips from 05/30 and 05/31 that reveal abnormal bradycardia. Vital signs have remained stable. TSH was WNL on 05/29/17. Will order EKG today and in the morning for Steaming Machine Operator to review. The patient denies dizziness, lightheadedness, pre-syncopal episode, or weakness. She has been ambulating in her room since admission and denies symptoms. Continuous monitoring of hypertension and diabetes, chronic and stable. ROS: no acute distress denies pre-syncopal, dizziness, lightheadedness 1. ANASARCA - continue diuretics, resolving. 2. ENLARGED UTERUS - cytology definitive for ovarian cancer, Oncology consulted. 3. HYPERTENSION - well controlled. Will adjust medications accordingly during hospital stay 4. DIABETES - blood glucose levels well controlled. 5. ABNORMAL EKG - Sinus rhythm with sinus arrhythmia? Exam (Progress Note) - Constitutional Vitals: Period Temp Pulse Resp BP Sys/Galvan Pulse Ox Last 24 Hr 97.8 F-98.8 F 67-88 16-18 125-144/69-80 93-97 Exam: General: Appears well with no apparent distress. Pleasant and cooperative. Appears comfortable. HEENT: PERRL, normocephalic, atraumatic. Mucous membranes moist. No jaundice noted. Conjunctiva moist and clear, sclerae anicteric. Neck: No JVD, no thyromegaly or lymphadenopathy noted. No carotid bruit appreciated. Cardiac: Irregular rate and rhythm. No murmur rub or gallop. PMI is nondisplaced. Lungs: Clear to auscultation without accessory muscle use to assist the respiratory pattern. No oxygen in use. Abdomen: Soft, bowel sounds normoactive. Nontender, some distention noted. No abdominal bruit or thrill noted. No masses noted. Musculoskeletal: No fluid collection. Full range of motion is noted. Extremities: No clubbing, cyanosis noted. No edema noted. Upper extremity pulses 2+. Lower extremity pulses 2+. Capillary refill less than 3 seconds. Skin: Warm and dry. No unusual lesions or rashes. No skin breakdown appreciated. Neuro: Awake, alert and oriented 3. Moves all extremities well without hemiparesis or paralysis. No essential tremor is appreciated. Result/EKG - Labs CBC & BMP: 06/02/17 05:12 06/02/17 05:12 Lab Results: I have reviewed the past 24 hour labs Labs: Laboratory Results - last 24 hr 06/02/17 06/02/17 06/02/17 15:22 16:14 16:14 POC Glucose 148 H Total Protein 6.1 L IgG 1920 H IgG Total 1920 H IgA 273 IgA Total 273 IgM 71 IgM Total 71 Pro Electrophoresis Int Serum Total Protein PEP 6.1 L Albumin (PEP) 2.4 L Albumin (relative) 40.1 Myiku-1-Hivuijxp 0.3 Rconk-5-Hgvmwrlk rel 4.2 Mebul-4-Lepcwget 0.7 Elyfd-6-Kuvcbwkp rel 12.3 Zufj-2-Oedtbnju 0.7 Tatc-4-Rgfqcafe rel 12.1 Gamma Globulins 1.9 H Gamma Globulins rel 31.3 KIRSTEN Interpretation Free [place] Light Chains 6.50 H Free Lambda Light Chain 4.71 H Free [place]/Lambda Ratio 1.38 06/02/17 06/03/17 19:53 07:11 POC Glucose 116 H 97 Total Protein IgG IgG Total IgA IgA Total IgM IgM Total Pro Electrophoresis Int Serum Total Protein PEP Albumin (PEP) Albumin (relative) Lpmvk-1-Pymtzybo Hytyk-7-Unwgeqjq rel Njvul-1-Iqqwcnup Hdiqj-3-Zdxwwpwm rel Mwxg-1-Lbcxjros Jntl-8-Ilepojao rel Gamma Globulins Gamma Globulins rel KIRSTEN Interpretation Free [place] Light Chains Free Lambda Light Chain Free [place]/Lambda Ratio - EKG EKG results: interpreted by me (sinus arrhythmia), sinus rhythm I, Ildefonso Ding MD, personally performed the services described in this documentation, ascribed by Dianna Tejeda NP in my presence, and it is both accurate and complete .
--- NOTE | 2017-06-04 07:37 | Order Completion Report ---
See report scanned to EMR
--- NOTE | 2017-06-04 07:39 | Oncology Progress Note ---
Oncology Subjective PN Interval history: I have copied information from Up-To-Date concerning ovarian cancer as well as Taxol and carboplatin and I have given the patient all this information. I have also discussed the side effects of chemotherapy with her. This is ovarian cancer in spite of the fact that there is no ovarian mass. It is not unusual for ovarian cancer to develop from the peritoneal lining. I have discussed all this with her in detail. She is for placement of a Mediport catheter today. She can be moved to the oncology unit later today or in the morning and we will proceed with chemotherapy tomorrow. This chemotherapy is given 1 day every 3 weeks and it is probably going to include Avastin as in addition with later courses. Today she is fully oriented and alert and in no acute distress. Exam - Constitutional Vitals: Period Temp Pulse Resp BP Sys/Galvan Pulse Ox Last 24 Hr 97.5 F-98.9 F 64-87 18-20 123-152/69-86 93-99 Results - Labs CBC & BMP: 06/02/17 05:12 06/02/17 05:12
[2017-06-04] MEDS: INSULIN LISPRO 100 UNIT/ML SUBCUT SCH ×4 (08:00→21:14)
[2017-06-04] MEDS: DIGOXIN 0.125 MG TABLET PO SCH (08:01)
[2017-06-04] MEDS: CARVEDILOL 3.125 MG TABLET PO SCH ×2 (08:01→21:30)
--- NOTE | 2017-06-04 08:39 | Cardiology Progress Note ---
Assessment and Plan - Time spent with patient Time spent with patient: Greater than 30 minutes (1) Hypertension Status: Chronic Assessment and plan: SEE PLAN OF CARE LISTED BELOW 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: Yes (2) Shortness of breath Status: Acute Assessment and plan: SEE PLAN OF CARE LISTED BELOW 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: Yes (3) Fatigue Status: Chronic Assessment and plan: SEE PLAN OF CARE LISTED BELOW 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: Yes (4) Anasarca Status: Resolved Assessment and plan: SEE PLAN OF CARE LISTED BELOW 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: Yes (5) Diabetes Status: Chronic Assessment and plan: SEE PLAN OF CARE LISTED BELOW 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: Yes Qualifiers: Diabetes mellitus type: type 2 Chronic kidney disease stage: stage 2 (mild ) (6) Enlarged uterus Status: Acute Assessment and plan: SEE PLAN OF CARE LISTED BELOW 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: Yes (7) Ovarian cancer Status: Acute Assessment and plan: SEE PLAN OF CARE LISTED BELOW 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: Yes Cardiology - PN: Subj Interval history: SUMMARY: Ms. Jolly, 72BF, with risk factors significant for: hypertension, diabetes, sedentary lifestyle. Admitted May 29, 2017 for anasarca, worsening shortness of breath and fatigue. Patient was found to have ovarian cancer most likely developing from the peritoneal lining. Dr. Del Toro is following. Cardiology was consulted for evaluation of cardiac contributions to anasarca, shortness of breath and fatigue. Echocardiogram revealed: EF 65%, grade 1 diastolic dysfunction, mild concentric LVH, moderate MR, moderate TR, large left pleural effusion. There was question as to possible high degree AV block on an EKG but after cardiology reviewed, felt this was not a significant block requiring intervention. JUNE 04, 2017: Patient is followed for chronic, stable conditions to include hypertension, diabetes. She is also followed for more acute conditions to include anasarca, ovarian cancer. Denies chest pain, heaviness, tightness. Denies shortness of breath, PND or orthopnea. Patient scheduled for Mediport today. There was a question regarding an EKG and possible high degree AV block. Dr. Ding has reviewed EKGs and felt as if there was no significant block requiring cardiac intervention. From cardiology standpoint, she seems to be stable. Blood pressure is adequately controlled on low-dose Coreg. Patient has diuresed approximately 4 kg since admission. I will further discuss with Dr. Ding and await additional recommendations. JUNE 04, 2017 REVIEW OF SYSTEMS: Cardiovascular: Denies chest pain, heaviness, tightness. Denies palpitations Pulmonary: Denies shortness of breath, orthopnea or PND Gastrointestinal: Denies nausea, vomiting or diarrhea IMPRESSION/PLAN: 1. ANASARCA - continue diuretics, resolving. Diuresed/lost 4 kg since admission. Echocardiogram reveals no contributions to anasarca 2. OVARIAN CANCER - cytology definitive for ovarian cancer. Dr. Del Toro is following and has developed a plan which is been discussed with the patient this morning. She verbalizes understanding. 3. HYPERTENSION - well controlled. Will adjust medications accordingly during hospital stay 4. DIABETES - blood glucose levels well controlled. 5. ABNORMAL EKG - Sinus rhythm with sinus arrhythmia, intermittent first- degree AV block. Exam (Progress Note) - Constitutional Vitals: Period Temp Pulse Resp BP Sys/Galvan Pulse Ox Last 24 Hr 97.5 F-98.9 F 64-87 18-20 123-152/69-86 96-99 Exam: General: [Appears well with no apparent distress.] [Pleasant and cooperative. ] [Appears comfortable.] HEENT: [PERRL, normocephalic, atraumatic. Mucous membranes moist. No jaundice noted. Conjunctiva moist and clear, sclerae anicteric] Neck: No JVD/HJR, no thyromegaly or lymphadenopathy noted. No carotid bruit appreciated Cardiac: [Regular rate and rhythm.] [No obvious murmur rub or gallop.] Lungs: [ clear to auscultation without accessory muscle use to assist the respiratory pattern.] Oxygen in use via nasal cannula Abdomen: Protuberant but soft, hypoactive bowel sounds. No abdominal bruit or thrill noted. Musculoskeletal: No fluid collection. Decreased range of motion is noted. Extremities: No clubbing, cyanosis noted. [Trace bilateral lower extremity edema noted.] Upper extremity pulses 2+. Lower extremity pulses 2+. Capillary refill less than 3 seconds. Skin: No unusual lesions or rashes. No skin breakdown appreciated. Neuro: Awake, alert and oriented 3. Moves all extremities well without hemiparesis or paralysis. No essential tremor is appreciated. Result/EKG - Labs CBC & BMP: 06/02/17 05:12 06/02/17 05:12 Lab Results: I have reviewed the past 24 hour labs Labs: Laboratory Results - last 24 hr 10/05/1106/03/17 06/03/17 16:14 13:05 15:19 POC Glucose 132 H 114 H Pro Electrophoresis Int Albumin (PEP) 2.4 L Albumin (relative) 40.1 Akkej-2-Dtpfkscz 0.3 Alxya-1-Ezzvqiin rel 4.2 Kpvlr-0-Khykdjyi 0.7 Dkzop-3-Zihctesj rel 12.3 Yyql-1-Aaknfbwn 0.7 Udmd-5-Wgnitmpn rel 12.1 Gamma Globulins 1.9 H Gamma Globulins rel 31.3 KIRSTEN Interpretation 06/03/17 06/04/17 20:09 07:34 POC Glucose 150 H 85 Pro Electrophoresis Int Albumin (PEP) Albumin (relative) Vxkei-9-Ibquzsqd Zhhis-8-Yxzqbish rel Jlfil-8-Rgufqgln Fpxgc-2-Plbzbxwj rel Llal-2-Ejlwzjag Ktws-2-Xzgetmmd rel Gamma Globulins Gamma Globulins rel KIRSTEN Interpretation - EKG EKG results: interpreted by mi EKG shows: sinus rhythm
--- NOTE | 2017-06-04 08:56 | Nephrology Progress Note ---
Nephrology - PN: Subj Interval history: Patient is resting comfortably. She states her lower extremity swelling has improved. She is getting further workup with an MRI of the abdomen done on tomorrow. Serum creatinine has been stable at 0.6. 06/03/2017. The patient is resting comfortably. She has had further workup that reveals evidence of metastatic gynecologic cancer. She has has a pending MRI today. Renal function has been stable. Hemodynamically stable. 06/04/2017. The patient is resting comfortably. No acute changes. Renal function has been stable. Exam (PN)-Nephrology - Vital Signs Vital signs: Period Temp Pulse Resp BP Sys/Galvan Pulse Ox Last 24 Hr 97.5 F-98.9 F 64-87 18-20 123-152/69-86 96-99 - General Appearance General appearance: well-developed, frail EENT: ATNC Neck: supple Respiratory: clear Cardiology: no edema, regular rate, regular rhythm Gastrointestinal: normoactive bowel sounds, no tenderness, no guarding Neurologic: alert and oriented x3 Musculoskeletal: no clubbing Psychiatric: mood/affect appropriate, cooperative - Lab 06/02/17 05:12 06/02/17 05:12 Most recent lab results Calcium 9.3 MG/DL (8.5-10.1) 06/02/17 05:12 Magnesium 2.2 MG/DL (1.8-2.4) 06/02/17 05:12 Assessment and Plan (1) Diabetes Status: Chronic 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: Yes Qualifiers: Diabetes mellitus type: type 2 Chronic kidney disease stage: stage 2 (mild ) (2) Anasarca Status: Resolved Assessment and plan: Agree with Lasix therapy. 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: Yes (3) Fatigue Status: Chronic 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: Yes
[2017-06-04] MEDS ORDERED: TISSUE ADHESIVE 1 EACH APPLICATOR TOP ONE (09:19)
[2017-06-04] MEDS ORDERED: LIDOCAINE 1%/EPI INJ 20 ML VIAL ONE (09:20)
[2017-06-04] MEDS ORDERED: HEPARIN 5,000 UNIT/1 ML VIAL ONE (09:20)
[2017-06-04] MEDS ORDERED: BUPIVACAINE 0.25% 50 ML VIAL ONE (09:20)
--- NOTE | 2017-06-04 10:42 | Operative Note ---
Date of procedure: 06/04/17 Pre-op diagnosis: Ovarian cancer with need for Mediport access Post-op diagnosis: same Procedure: Preoperative diagnosis Ovarian cancer with need for chemotherapy access Postoperative diagnosis Same Procedures performed Right cephalic vein cutdown Mediport placement Fluoroscopic guidance and interpretation of images Findings The cephalic vein was used to access the central venous system and the catheter was placed into the cavoatrial junction under fluoroscopic guidance. Complications None apparent Specimen None Anesthesia Monitored with local Blood loss 10 mL Indications Need for central venous access for chemotherapy administration Description of procedure The patient was taken to the operating room and transferred to the operating table in the supine position. Pressure points were padded and SCDs were placed to bilateral lower extremities. Monitored anesthesia was administered. The risks, benefits, and alternatives of the operation were discussed in detail with the patient and the expected outcomes were reviewed. All the patient's questions were answered and she elects to proceed with the operation. The chest and neck was prepped bilaterally with chlorhexidine and sterile drapes were placed. Preoperative antibiotics were administered, and a timeout was performed. The right deltopectoral groove was palpated and local anesthetic was administered. An incision was then made and the Bovie electrocautery was used to dissected down to the pectoralis muscle and the deltopectoral fat pad is identified. This fat plane was then dissected into the cephalic vein was identified. The cephalic vein is controlled with 3-0 Vicryl ties proximally and distally and the distal end was tied down. A venotomy was then made and the Mediport catheter was inserted into the cephalic vein. The catheter threaded easily and fluoroscopy was used to position the tip of the catheter in the cavoatrial junction. The Mediport pocket was then created in the subcutaneous tissues just below the dermis, anterior chest wall below the deltopectoral groove incision. Local anesthetic was administered prior to making this flap. Mediport was then secured to the catheter with the flange. Mediport was accessed and returned blood easily and was flushed with heparin. Mediport was sewn into the pocket with 3-0 Vicryl sutures. A final fluoroscopic picture revealed good positioning of the tip of the catheter in the cavoatrial junction with no apparent complications. The skin incision was closed with 4-0 Monocryl subcuticular sutures and dressed with sterile skin glue. The patient was awakened from anesthesia and transferred to recovery. Postoperative plan Follow-up as needed Implants: PowerPort Anesthesia: MAC, local Surgeon / Physician: Shane Kellogg Estimated blood loss: minimal Specimens: other Condition: stable Disposition: PACU Results - Labs CBC & BMP: 06/02/17 05:12 06/02/17 05:12 Discharge Plan - Discharge Medications No Action cloNIDine HCl [Clonidine HCl] 0.2 mg PO BID Glimepiride 1 mg PO DAILY W/BREAKFAST Spironolactone 25 mg PO DAILY Digoxin Tab [Lanoxin Tab] 0.125 mcg PO DAILY Carvedilol 25 mg PO BID Losartan/Hydrochlorothiazide [Losartan-Hctz 100-25 mg Tab] 1 each PO DAILY - Follow Up or Referral - Forms/Instructions
[2017-06-04] MEDS ORDERED: MIDAZOLAM 2 MG/2 ML VIAL ONE (10:52)
[2017-06-04] MEDS ORDERED: PROPOFOL 200 MG/20 ML VIAL IV ONE (10:52)
[2017-06-04] MEDS ORDERED: fentaNYL 100 MCG/2 ML VIAL ONE (10:52)
--- NOTE | 2017-06-04 11:46 | Anesthesia Post-Op ---
Anesthesia Post OP - Post Ansesthetic Evaluation Patient seen in post op: Yes Resp: within normal limits CV: within normal limits Mental: within normal limits Temp: within normal limits Jdhy-[id number]-[id number]: within normal limits Nausea and Vomiting: within normal limits Pain: within normal limits
--- NOTE | 2017-06-04 13:44 | Hospitalist Progress Note ---
Assessment and Plan (1) Ovarian cancer Status: Acute Assessment and plan: s/p port, chemotherapy by Dr. Del Toro 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: Yes (2) Ascites Status: Acute Assessment and plan: Due to ovarian cancer 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: Yes (3) Diabetes Status: Chronic Assessment and plan: hgb a1c 6, bs controlled 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: Yes Qualifiers: Diabetes mellitus type: type 2 Chronic kidney disease stage: stage 2 (mild ) (4) Hypertension Status: Chronic Assessment and plan: controlled, no beta or ca channel blockers due to sinus arrhythmia 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: Yes (5) Sinus arrhythmia Status: Acute Assessment and plan: avoid beta or ca channel blockers 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: Yes Hospitalist: Subjective Interval history: Patient be transferred to [facility] for chemotherapy. She has port by Dr. Kellogg. Exam - Constitutional Vitals: Period Temp Pulse Resp BP Sys/Galvan Pulse Ox Last 24 Hr 97.6 F-98.9 F 64-87 10-20 93-152/57-86 96-100 Exam: Heart Rate-[RRR] Lungs-[CTAB] GI-[+bs soft, ascites better Ext-[trace edema, osiel hose ] Neuro [Motor 5/5], [alert and oriented times 3] psych [depressed mood and affect] General [no acute distress] Results - Labs CBC & BMP: 06/02/17 05:12 06/02/17 05:12 Lab Results: I have reviewed the past 24 hour labs
[2017-06-04] MEDS: metOLazone 5 MG TABLET PO SCH (13:52)
[2017-06-04] MEDS: SPIRONOLACTONE 50 MG TABLET PO SCH (13:56)
[2017-06-04] MEDS: PANTOPRAZOLE 40 MG TABLET PO SCH (13:56)
[2017-06-04] MEDS: ENOXAPARIN 40 MG/0.4 ML SYRINGE SUBCUT SCH (21:30)
[2017-06-05 06:15] LABS: Basophils % 0.7 % (0.0-0.8); Eosinophils # 0.3 10*3/uL (0.0-0.87); Eosinophils % 5.9 % (0.00-10.9); Hematocrit 25.4 VOL% (35.7-47.0); Hemoglobin 8.2 GM/DL (12.0-16.0); Immature Granulocytes % 0.5 %; Immature Granulocytes Absolute 0.02 #; Lymphocytes # 0.7 10*3/uL (1.4-4.0); Lymphocytes % 16.6 % (21.3-54.2); Mean Corpuscular HGB Conc 32.3 GM/DL (32-36); Mean Corpuscular Hemoglobin 26 PG (27-34); Mean Corpuscular Volume 81.2 FL (87-102); Mean Platelet Volume 9.9 FL (9.6-12.0); Monocytes # 0.5 10*3/uL (0.11-0.8); Monocytes % 12.4 % (1.7-12.7); Neutrophils # 2.7 10*3/uL (1.4-7.4); Neutrophils % 63.9 % (38.7-73.9); Platelet Count 270 T/CUMM (130-400); Red Blood Count 3.13 MC/CUMM (3.8-5.5); White Blood Count 4.2 T/CUMM (4-12)
[2017-06-05 06:51] LABS: Alanine Aminotransferase 12 U/L (13-56); Albumin 2.1 G/DL (3.4-5.0); Alkaline Phosphatase 74 U/L (45-117); Aspartate Amino Transferase 22 U/L (0-37); Bilirubin,Total < 0.39 MG/DL (0.2-1.0); Blood Urea Nitrogen 16 MG/DL (7-18); Calcium 9.2 MG/DL (8.5-10.1); Glucose 85 MG/DL (74-106); Osmolality,Calculated 274.7 MOS/KG (273-304); Sodium 138 MMOL/L (136-145); Total Protein 6.3 G/DL (6.4-8.3)
[2017-06-05] MEDS: DIGOXIN 0.125 MG TABLET PO SCH (08:35)
[2017-06-05] MEDS: SPIRONOLACTONE 50 MG TABLET PO SCH (08:35)
[2017-06-05] MEDS: PANTOPRAZOLE 40 MG TABLET PO SCH (08:35)
[2017-06-05] MEDS: CARVEDILOL 3.125 MG TABLET PO SCH ×2 (08:35→21:37)
[2017-06-05] MEDS: INSULIN LISPRO 100 UNIT/ML SUBCUT SCH ×4 (08:36→21:38)
--- NOTE | 2017-06-05 08:58 | Oncology Progress Note ---
Oncology Subjective PN Interval history: Ms. Jolly has stage III, at least, ovarian carcinoma. She has had a Mediport catheter placed and we will proceed with chemotherapy today including prophylactic antibiotics and prophylaxis against anaphylactic reaction. The Taxol dose will be 225 mg. The carboplatin dose will be 500 mg. Both of these doses can be escalated with this patient is extremely frail and I am starting slightly low dose. The usual doses are: Taxol 175 mg/m and carboplatin is 6 AUC. She is anemic. Will recheck lab work tomorrow in case she needs blood transfusion before discharge. Her medical catheter is already accessed and appears to be functioning normally. She is fully oriented and alert and in no acute distress. She is fully conversant and she has questions about her chemotherapy. I have instructed her to notify the nurses if she developed nausea so that she can be treated right away but hopefully the premedications prior to the chemotherapy will prevent this from happening. See my orders for lab work tomorrow. I have handwritten the chemotherapy orders for multiple reasons. Exam - Constitutional Vitals: Period Temp Pulse Resp BP Sys/Galvan Pulse Ox Last 24 Hr 97.6 F-99.2 F 64-86 10-20 93-169/57-76 93-100 Results - Labs CBC & BMP: 06/05/17 05:34 06/05/17 05:34
[2017-06-05] MEDS ORDERED: metOLazone 5 MG TABLET PO SCH (09:00)
[2017-06-05] MEDS ORDERED: TEMAZEPAM 7.5 MG CAPSULE PO PRN (09:16)
[2017-06-05] MEDS ORDERED: ONDANSETRON 4 MG/2 ML VIAL IV PRN (09:16)
[2017-06-05] MEDS ORDERED: LACTULOSE 20 GM/30 ML UDCUP PO PRN (09:16)
[2017-06-05] MEDS ORDERED: diphenhydrAMINE CAP 25 MG CAPSULE PO PRN (09:16)
[2017-06-05] MEDS ORDERED: MYLANTA/LIDO VISC 2:1 300 ML BOTTLE SWISH/SPIT PRN (09:16)
[2017-06-05] MEDS ORDERED: chlorproMAZINE 25 MG TABLET PO PRN (09:16)
[2017-06-05] MEDS ORDERED: MYLANTA/LIDO VISC 2:1 300 ML BOTTLE SWISH/SWAL PRN (09:16)
[2017-06-05] MEDS ORDERED: ALUMINUM/MAGNES/SIMETH MAX STR 30 ML UDCUP PO PRN (09:16)
[2017-06-05] MEDS ORDERED: BENZTROPINE 2 MG/2 ML AMP IV PRN (09:16)
[2017-06-05] MEDS ORDERED: guaiFENesin 200 MG/10 ML UDCUP PO PRN (09:16)
[2017-06-05] MEDS ORDERED: PROMETHAZINE INJ 25 MG in SODIUM CHLORIDE 0.9% 50 ML IV PRN (09:16)
[2017-06-05] MEDS ORDERED: ALPRAZolam 0.25 MG TABLET PO PRN (09:16)
[2017-06-05] MEDS ORDERED: traMADol 50 MG TABLET PO PRN (09:16)
[2017-06-05] MEDS ORDERED: chlorproMAZINE INJ 25 MG in SODIUM CHLORIDE 0.9% 100 ML IV PRN (09:16)
[2017-06-05] MEDS ORDERED: chlorproMAZINE INJ 50 MG in SODIUM CHLORIDE 0.9% 100 ML IV PRN (09:16)
[2017-06-05] MEDS ORDERED: MAGNESIUM HYDROXIDE SUSP 30 ML UDCUP PO PRN (09:16)
[2017-06-05] MEDS ORDERED: LOPERAMIDE 2 MG CAPSULE PO PRN ×2 (09:16)
[2017-06-05] MEDS ORDERED: ACETAMINOPHEN 325 MG TABLET PO PRN (09:16)
[2017-06-05] MEDS ORDERED: diphenhydrAMINE 50 MG/1 ML VIAL IV ONE (09:30)
[2017-06-05] MEDS ORDERED: DEXAMETHASONE 10 MG/1 ML VIAL IV ONE (09:30)
[2017-06-05] MEDS ORDERED: SODIUM CHLORIDE 0.9% IV ONE (10:00)
[2017-06-05] MEDS ORDERED: FAMOTIDINE IV ONE (10:00)
[2017-06-05] MEDS ORDERED: CARBOplatin 500 MG in SODIUM CHLORIDE 0.9% 250 ML IV ONE (10:30)
[2017-06-05] MEDS ORDERED: PACLitaxel 225 MG in SODIUM CHLORIDE 0.9% 250 ML IV ONE (10:30)
--- NOTE | 2017-06-05 10:54 | Cardiology Progress Note ---
Assessment and Plan - Time spent with patient Time spent with patient: Greater than 30 minutes (1) Hypertension Status: Chronic Assessment and plan: SEE PLAN OF CARE LISTED BELOW 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: Yes (2) Shortness of breath Status: Resolved Assessment and plan: SEE PLAN OF CARE LISTED BELOW 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: Yes (3) Fatigue Status: Chronic Assessment and plan: SEE PLAN OF CARE LISTED BELOW 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: Yes (4) Anasarca Status: Resolved Assessment and plan: SEE PLAN OF CARE LISTED BELOW 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: Yes (5) Diabetes Status: Chronic Assessment and plan: SEE PLAN OF CARE LISTED BELOW 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: Yes Qualifiers: Diabetes mellitus type: type 2 Chronic kidney disease stage: stage 2 (mild ) (6) Enlarged uterus Status: Acute Assessment and plan: SEE PLAN OF CARE LISTED BELOW 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: Yes (7) Ovarian cancer Status: Acute Assessment and plan: SEE PLAN OF CARE LISTED BELOW 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: Yes (8) Anemia Status: Acute Assessment and plan: SEE PLAN OF CARE LISTED BELOW 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: Yes Cardiology - PN: Subj Interval history: SUMMARY: Ms. Jolly, 72BF, with risk factors significant for: hypertension, diabetes, sedentary lifestyle. Admitted May 29, 2017 for anasarca, worsening shortness of breath and fatigue. Patient was found to have ovarian cancer most likely developing from the peritoneal lining. Dr. Del Toro is following. Cardiology was consulted for evaluation of cardiac contributions to anasarca, shortness of breath and fatigue. Echocardiogram revealed: EF 65%, grade 1 diastolic dysfunction, mild concentric LVH, moderate MR, moderate TR, large left pleural effusion. There was question as to possible high degree AV block on an EKG but after cardiology reviewed, felt this was not a significant block requiring intervention. JUNE 05, 2017: Patient is followed for chronic, stable conditions to include hypertension, diabetes. She is also followed for more acute conditions to include anasarca, ovarian cancer. Denies chest pain, heaviness, tightness. Denies shortness of breath, PND or orthopnea. Patient underwent implantation Mediport yesterday. She is starting chemotherapy today. Ordering EKG this morning to further explore her rhythm. Blood pressure is stable at this point. She continues to diurese and has lost an additional kilogram overnight. Anemia is worsened overnight. I will further discuss with Dr. Ding and await additional recommendations. JUNE 05, 2017 REVIEW OF SYSTEMS: Cardiovascular: Denies chest pain, heaviness, tightness. Denies palpitations Pulmonary: Denies shortness of breath, orthopnea or PND Gastrointestinal: Denies nausea, vomiting or diarrhea IMPRESSION/PLAN: 1. ANASARCA - continue diuretics, resolving. Diuresed/lost a total of 5 kg since admission. Echocardiogram reveals no contributions to anasarca 2. OVARIAN CANCER - cytology definitive for ovarian cancer. Dr. Del Toro is following. Patient has undergone Mediport and is starting chemotherapy today. 3. HYPERTENSION - well controlled. Will adjust medications accordingly during hospital stay 4. DIABETES - blood glucose levels well controlled. 5. ABNORMAL EKG - Sinus rhythm with sinus arrhythmia, intermittent first- degree AV block. EKG today. 6. ANEMIA - following anemia daily. May benefit from transfusion prior to discharge. Exam (Progress Note) - Constitutional Vitals: Period Temp Pulse Resp BP Sys/Galvan Pulse Ox Last 24 Hr 97.6 F-99.2 F 64-86 16-20 93-169/57-76 93-100 Result/EKG - Labs CBC & BMP: 06/05/17 05:34 06/05/17 05:34 Lab Results: I have reviewed the past 24 hour labs Labs: Laboratory Results - last 24 hr 06/04/17 06/04/17 06/04/17 09:31 11:52 16:57 WBC RBC Hgb Hct MCV MCH MCHC RDW Plt Count MPV Neut % (Auto) Lymph % (Auto) [place] % (Auto) Eos % (Auto) Baso % (Auto) Neut # (Auto) Lymph # (Auto) [place] # (Auto) Eos # (Auto) Baso # (Auto) Immature Gran % Nucleated RBC % Immature Gran # Nucleated RBCs # Immature Plt Fraction Sodium Potassium Chloride Carbon Dioxide Anion Gap BUN Creatinine GFR Calculation BUN/Creatinine Ratio Glucose POC Glucose 92 98 122 H Calculated Osmolality Calcium Total Bilirubin AST ALT Alkaline Phosphatase Total Protein Albumin Globulin Albumin/Globulin Ratio 06/04/17 06/05/17 06/05/17 18:58 05:34 05:34 WBC 4.2 RBC 3.13 L Hgb 8.2 L Hct 25.4 L MCV 81.2 L MCH 26 L MCHC 32.3 RDW 17.0 Plt Count 270 MPV 9.9 Neut % (Auto) 63.9 Lymph % (Auto) 16.6 L [place] % (Auto) 12.4 Eos % (Auto) 5.9 Baso % (Auto) 0.7 Neut # (Auto) 2.7 Lymph # (Auto) 0.7 L [place] # (Auto) 0.5 Eos # (Auto) 0.3 Baso # (Auto) 0.0 Immature Gran % 0.5 Nucleated RBC % 0.0 Immature Gran # 0.02 Nucleated RBCs # 0.00 Immature Plt Fraction 0.0 Sodium 138 Potassium 4.0 Chloride 101 Carbon Dioxide 35 H Anion Gap 6.0 BUN 16 Creatinine 0.60 GFR Calculation 88 BUN/Creatinine Ratio 26.00 H Glucose 85 POC Glucose 134 H Calculated Osmolality 274.7 Calcium 9.2 Total Bilirubin < 0.39 AST 22 ALT 12 L Alkaline Phosphatase 74 Total Protein 6.3 L Albumin 2.1 L Globulin 4.2 H Albumin/Globulin Ratio 0.5 L 06/05/17 06/05/17 07:59 10:36 WBC RBC Hgb Hct MCV MCH MCHC RDW Plt Count MPV Neut % (Auto) Lymph % (Auto) [place] % (Auto) Eos % (Auto) Baso % (Auto) Neut # (Auto) Lymph # (Auto) [place] # (Auto) Eos # (Auto) Baso # (Auto) Immature Gran % Nucleated RBC % Immature Gran # Nucleated RBCs # Immature Plt Fraction Sodium Potassium Chloride Carbon Dioxide Anion Gap BUN Creatinine GFR Calculation BUN/Creatinine Ratio Glucose POC Glucose 93 119 H Calculated Osmolality Calcium Total Bilirubin AST ALT Alkaline Phosphatase Total Protein Albumin Globulin Albumin/Globulin Ratio - EKG EKG results: interpreted by me EKG shows: sinus rhythm
--- NOTE | 2017-06-05 11:21 | Order Completion Report ---
See report scanned to EMR
--- NOTE | 2017-06-05 11:57 | Nephrology Progress Note ---
Nephrology - PN: Subj Interval history: Patient is resting comfortably. She states her lower extremity swelling has improved. She is getting further workup with an MRI of the abdomen done on tomorrow. Serum creatinine has been stable at 0.6. 06/03/2017. The patient is resting comfortably. She has had further workup that reveals evidence of metastatic gynecologic cancer. She has has a pending MRI today. Renal function has been stable. Hemodynamically stable. 06/04/2017. The patient is resting comfortably. No acute changes. Renal function has been stable. 06/05/2017. The patient is resting comfortably. She is undergoing her first session of chemotherapy for ovarian cancer. She denies any shortness of breath or chest pain. Exam (PN)-Nephrology - Vital Signs Vital signs: Period Temp Pulse Resp BP Sys/Galvan Pulse Ox Last 24 Hr 97.7 F-99.2 F 67-86 16-20 122-169/60-76 93-100 - General Appearance General appearance: fatigue, frail EENT: ATNC Neck: supple Respiratory: clear Cardiology: regular rate, regular rhythm Gastrointestinal: normoactive bowel sounds, no tenderness Neurologic: alert and oriented x3 Musculoskeletal: no clubbing Psychiatric: mood/affect appropriate, cooperative - Lab 06/05/17 05:34 06/05/17 05:34 Most recent lab results Calcium 9.2 MG/DL (8.5-10.1) 06/05/17 05:34 Magnesium 2.2 MG/DL (1.8-2.4) 06/02/17 05:12 Assessment and Plan (1) Diabetes Status: Chronic 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: Yes Qualifiers: Diabetes mellitus type: type 2 Chronic kidney disease stage: stage 2 (mild ) (2) Anasarca Status: Resolved Assessment and plan: Agree with Lasix therapy. 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: Yes (3) Fatigue Status: Chronic 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: Yes (4) Ovarian cancer Status: Acute 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: Yes
[2017-06-05] MEDS: GRANISETRON 1 MG/1 ML VIAL IV SCH (12:11)
--- NOTE | 2017-06-05 14:16 | Hospitalist Progress Note ---
Assessment and Plan (1) Ovarian cancer Status: Acute Assessment and plan: s/p port, chemotherapy with paclitaxel and carboplatinum today. 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: Yes (2) Ascites Status: Acute Assessment and plan: lasix IV, spironolactone, chest ct shows bilateral pleural effusions 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: Yes (3) Diabetes Status: Chronic Assessment and plan: hgb a1c 6, bs controlled 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: Yes Qualifiers: Diabetes mellitus type: type 2 Chronic kidney disease stage: stage 2 (mild ) (4) Hypertension Status: Chronic Assessment and plan: controlled, no beta or ca channel blockers due to sinus arrhythmia 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: Yes (5) Sinus arrhythmia Status: Acute Assessment and plan: avoid beta or ca channel blockers 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: Yes (6) Thyroid mass Status: Acute Assessment and plan: 2.8 cm solid mass in the right lobe of the thyroid ultrasound-guided biopsy ordered. 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: Yes Hospitalist: Subjective Interval history: Patient in good spirits today. She is fasting to get her chemotherapy today if she does well she will get to go home tomorrow. Her ascites is a little bit worse today and I meant to give her a little bit more diuretics. Exam - Constitutional Vitals: Period Temp Pulse Resp BP Sys/Galvan Pulse Ox Last 24 Hr 97.7 F-99.2 F 67-86 16-20 122-169/60-76 93-100 Exam: Heart Rate-[RRR] Lungs-[CTAB] GI-[+bs soft, ascites a little worse Ext-[no edema, osiel hose ] Neuro [Motor 5/5], [alert and oriented times 3] psych [depressed mood and affect] General [no acute distress] Results - Labs CBC & BMP: 06/05/17 05:34 06/05/17 05:34 Lab Results: I have reviewed the past 24 hour labs - Diagnostic Findings Procedure: Chest x-ray: report reviewed by me (mod bilateral pleural and 2.8 cm right thyroid lobe)
[2017-06-05] MEDS: POTASSIUM CHLORIDE 20 MEQ TABLET PO SCH (15:01)
[2017-06-05] MEDS: FUROSEMIDE 40 MG/4 ML VIAL IV SCH (17:34)
--- NOTE | 2017-06-05 17:39 | Ultrasound Report ---
Thyroid ultrasound. Indication: 2.8 cm mass within the right lobe of the thyroid. No prior studies. The thyroid gland is enlarged. The right lobe measures 5.4 x 2.4 x 2.8 cm. The right lobe contains a large mass measuring 3.6 x 2.2 x 2.2 cm. The mass is solid and hyperemic. The left lobe of the thyroid measures 5.1 x 1.3 x 1.6 cm and contains 2 small cysts, measuring 3 to 4 mm. Impression: Thyromegaly. Dominant mass in the right lobe, measuring 2.2 x 3.6 cm, with moderately suspicious ultrasonographic features. Tissue sampling is recommended The Ultrasound images were captured and stored. PROCEDURE INTERPRETED AT [facility] DEPARTMENT OF RADIOLOGY Final Report Signed by: Dr. Laurita Mcdaniel
[2017-06-05] MEDS: ENOXAPARIN 40 MG/0.4 ML SYRINGE SUBCUT SCH (21:37)
[2017-06-06 05:21] LABS: Basophils % 0.4 % (0.0-0.8); Eosinophils % 0.2 % (0.00-10.9); Hematocrit 24.7 VOL% (35.7-47.0); Immature Granulocytes % 0.2 %; Immature Granulocytes Absolute 0.01 #; Lymphocytes # 0.5 10*3/uL (1.4-4.0); Lymphocytes % 11.8 % (21.3-54.2); Mean Corpuscular HGB Conc 32.4 GM/DL (32-36); Mean Corpuscular Hemoglobin 26 PG (27-34); Mean Corpuscular Volume 81.3 FL (87-102); Mean Platelet Volume 10.2 FL (9.6-12.0); Monocytes # 0.3 10*3/uL (0.11-0.8); Monocytes % 7.4 % (1.7-12.7); Neutrophils # 3.7 10*3/uL (1.4-7.4); Platelet Count 257 T/CUMM (130-400); Red Blood Count 3.04 MC/CUMM (3.8-5.5); Red Cell Distribution Width 17.1 % (9.3-17.3); White Blood Count 4.6 T/CUMM (4-12)
[2017-06-06 05:40] LABS: Albumin 2.2 G/DL (3.4-5.0); Bilirubin,Total 0.5 MG/DL (0.2-1.0); Osmolality,Calculated 277.7 MOS/KG (273-304); Potassium 4.1 MMOL/L (3.5-5.1); Total Protein 6.6 G/DL (6.4-8.3)
[2017-06-06] MEDS: INSULIN LISPRO 100 UNIT/ML SUBCUT SCH ×2 (08:06→11:36)
[2017-06-06] MEDS: FUROSEMIDE 40 MG/4 ML VIAL IV SCH (09:07)
[2017-06-06] MEDS: DIGOXIN 0.125 MG TABLET PO SCH (09:08)
[2017-06-06] MEDS: CARVEDILOL 3.125 MG TABLET PO SCH (09:08)
[2017-06-06] MEDS: POTASSIUM CHLORIDE 20 MEQ TABLET PO SCH (09:08)
[2017-06-06] MEDS: SPIRONOLACTONE 50 MG TABLET PO SCH (09:08)
[2017-06-06] MEDS: GRANISETRON 1 MG/1 ML VIAL IV SCH (09:08)
[2017-06-06] MEDS: PANTOPRAZOLE 40 MG TABLET PO SCH (09:08)
--- NOTE | 2017-06-06 09:10 | Oncology Progress Note ---
Oncology Subjective PN Interval history: Ms. Jolly received her first course of chemotherapy for stage III ovarian carcinoma yesterday. She tolerated it surprisingly well. I am giving her prescription for Compazine 10 mg tablets with 20 tablets and 6 refills. She is to take 1 every 6 hours as needed for nausea. After this first course of chemotherapy I will be considering whether or not to administer Avastin. Chemotherapy yesterday consisted of Taxol 225 mg IV and carboplatin 500 mg IV. I am giving her prescription for Compazine 10 mg tablets with 20 dispensed and 6 refills to take 1 every 6 hours as needed for nausea. She is fully oriented and alert and in no acute distress. From my standpoint she can go home. I have already put in orders for her to return in 2 weeks for a complete blood count and red top tube. I am ordering an office visit appointment for June 24 or June 25. After I evaluate her, I will consider proceeding with course #2 of chemotherapy later that week. She is fully oriented and alert. She is in no acute distress. Her respirations are unlabored. She shows no signs of weakness. Exam - Constitutional Vitals: Period Temp Pulse Resp BP Sys/Galvan Pulse Ox Last 24 Hr 96.5 F-99.0 F 66-99 14-20 112-143/55-86 92-100 Results - Labs CBC & BMP: 06/06/17 04:15 06/06/17 04:15
--- NOTE | 2017-06-06 10:30 | Nephrology Progress Note ---
Nephrology - PN: Subj Interval history: Patient is resting comfortably. She states her lower extremity swelling has improved. She is getting further workup with an MRI of the abdomen done on tomorrow. Serum creatinine has been stable at 0.6. 06/03/2017. The patient is resting comfortably. She has had further workup that reveals evidence of metastatic gynecologic cancer. She has has a pending MRI today. Renal function has been stable. Hemodynamically stable. 06/04/2017. The patient is resting comfortably. No acute changes. Renal function has been stable. 06/05/2017. The patient is resting comfortably. She is undergoing her first session of chemotherapy for ovarian cancer. She denies any shortness of breath or chest pain. 06/06/2017. The patient is resting comfortably. She has undergone her first session of chemotherapy. Renal function has been stable. At this time no new recommendations for this patient. Patient was to follow with her primary provider. Exam (PN)-Nephrology - Vital Signs Vital signs: Period Temp Pulse Resp BP Sys/Galvan Pulse Ox Last 24 Hr 96.5 F-99.0 F 66-99 14-20 112-143/55-86 92-100 - General Appearance General appearance: frail EENT: ATNC Neck: supple Respiratory: clear Cardiology: no edema, regular rate, regular rhythm Gastrointestinal: normoactive bowel sounds, no tenderness, no guarding Neurologic: alert and oriented x3, CN 3-12 intact Musculoskeletal: no clubbing Psychiatric: mood/affect appropriate, cooperative - Lab 06/06/17 04:15 06/06/17 04:15 Most recent lab results Calcium 9.0 MG/DL (8.5-10.1) 06/06/17 04:15 Magnesium 2.0 MG/DL (1.8-2.4) 06/06/17 04:15 Assessment and Plan (1) Diabetes Status: Chronic 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: Yes Qualifiers: Diabetes mellitus type: type 2 Chronic kidney disease stage: stage 2 (mild ) (2) Anasarca Status: Resolved Assessment and plan: Agree with Lasix therapy. 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: Yes (3) Fatigue Status: Chronic 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: Yes (4) Ovarian cancer Status: Acute Assessment and plan: Undergoing chemotherapy. 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: Yes Specialty Discharge - Follow Up or Referrals Follow up with: Samy Del Toro MD [Physician] - 07/01/17 9:45 am (APPT WITH IS ON AT 945AM FOR LAB AND SEE AT 1145AM HAVE LAB WORK AT OFFICE ON ANYTIME BETWEEN 730AM AND 330PM)
--- NOTE | 2017-06-06 11:52 | Discharge Summary ---
Hospital Course - Hospital Course Hospital Course: Ms. Jolly is a 72 year old black female w/PMHx DM, HTN presented to [facility] Room 527 as direct admit from [facility] (shan boyd np) for further evaluation of increase fatigue, significant weight loss, worsening shortness of breath and anasarca x3-4 days. BUN 17 and creatinine 0.85, H&H 9.3 & 29.1, WBC 4.8, Albumin 2.5. 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 CXR: bilateral pleural effusions. Liver panel was reported within normal. CT of her abdomen showed large volume ascites displacing the bowel and visceral organs and an enlarged irregular looking uterus with extensive calcifications. Patient received large volume paracentesis by interventional radiology on May 30, 2017. 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 Dr. Del Toro from oncology was consulted. Patient was started on Paclitaxel and carboplatin for stage III [address] of the chest revealed a mass on her right thyroid and moderate-sized bilateral pleural effusions. She is rather asymptomatic from those pleural effusions at this time. She is receiving diuresis with Lasix and spironolactone. Ultrasound of her thyroid did confirm an irregular solid nodule on the right lobe of her thyroid. Patient will be set up for outpatient biopsy for an ultrasound and ultrasound guided biopsy of her right thyroid mass. Her pleural effusions need to be reevaluated at that time to see if she would benefit from a thoracentesis. Patient will follow up with her primary care doctor in 1 week. Patient will be allowed to go home today with follow-up in 2 weeks for complete CBC. Patient will receive her second course of chemotherapy later that week. Patient will follow with Dr. Del Toro on July 01. - Time spent with patient Time with patient DS: Greater than 30 minutes (45 minute) Diagnosis - Discharge Diagnosis (1) Ovarian cancer Status: Acute (2) Ascites Status: Acute (3) Diabetes Status: Chronic (4) Hypertension Status: Chronic (5) Sinus arrhythmia Status: Acute (6) Thyroid mass Status: Acute Specialty Discharge - Follow Up or Referrals Follow up with: dr jimmie [Other] - 1 Week Samy Del Toro MD [Physician] - 07/01/17 9:45 am (APPT WITH IS ON AT 945AM FOR LAB AND SEE AT 1145AM HAVE LAB WORK AT OFFICE ON ANYTIME BETWEEN 730AM AND 330PM) Discharge Plan - Discharge Data Disposition: Disch To Home/Self Care Condition at Discharge: Stable Discharge Diet: diabetic diet Activity: resume usual activities as tolerated Hygiene: no restrictions Weight Bearing at Discharge: full weight bearing - Discharge Medications New Carvedilol [Coreg] 3.125 mg PO BID #60 tablet Furosemide Tab [Lasix Tab] 40 mg PO BID DIURETIC #60 tablet Potassium Chloride Cap/Tab [K Dur] 20 meq PO DAILY #30 tablet Pantoprazole Tab [Protonix Tab] 40 mg PO DAILY #30 tablet Continue Digoxin Tab [Lanoxin Tab] 0.125 mcg PO DAILY Changed Spironolactone 50 mg PO DAILY #60 tablet Discontinued cloNIDine HCl [Clonidine HCl] 0.2 mg PO BID Glimepiride 1 mg PO DAILY W/BREAKFAST Carvedilol 25 mg PO BID Losartan/Hydrochlorothiazide [Losartan-Hctz 100-25 mg Tab] 1 each PO DAILY - Follow Up or Referral Follow Up: Samy Del Toro MD [Physician] - 07/01/17 9:45 am (APPT WITH IS ON AT 945AM FOR LAB AND SEE AT 1145AM HAVE LAB WORK AT OFFICE ON ANYTIME BETWEEN 730AM AND 330PM) dr jimmie [Other] - 1 Week - Forms/Instructions Additional Discharge Instructions: us guided thyroid biopsy in one week. us guided thoracentesis on left if pleural effusion not improving in one week Exam - Constitutional Vitals: Period Temp Pulse Resp BP Sys/Galvan Pulse Ox Last 24 Hr 96.5 F-99.0 F 66-99 14-20 112-143/55-86 92-100 General appearance: no acute distress, under weight - Respiratory Respiratory exam: Present: clear to auscultation bilaterally, decreased breath sounds - Cardiovascular Cardiovascular exam: Present: regular rate and rhythm. Absent: systolic murmur - GI/Abdominal GI/Abdominal exam: Present: normal bowel sounds, soft - Neurological Exam Neurological exam: Present: alert, oriented X3 Discharge Results Procedures and tests throughout hospitalization: Pending Orders 05/30/17 08:33 Cytology Request Routine 06/02/17 16:07 MR abdomen wo/w con Routine 06/03/17 08:17 BRCA1/BRCA2 Full Gene Analysis Routine 06/07/17 04:00 CMP [Comprehensive Metabolic Panel] IN AM Comp Blood Count Auto Diff IN AM Comp Blood Count Auto Diff IN AM Comprehensive Metabolic Panel IN AM LDH [Lactate Dehydrogenase] IN AM 06/08/17 04:00 Comp Blood Count Auto Diff IN AM Comprehensive Metabolic Panel IN AM LDH [Lactate Dehydrogenase] IN AM 06/09/17 04:00 Comp Blood Count Auto Diff IN AM Comprehensive Metabolic Panel IN AM LDH [Lactate Dehydrogenase] IN AM 06/10/17 04:00 Comp Blood Count Auto Diff IN AM Comprehensive Metabolic Panel IN AM LDH [Lactate Dehydrogenase] IN AM 06/11/17 04:00 Comp Blood Count Auto Diff IN AM Comprehensive Metabolic Panel IN AM Labs on day of discharge: Labs from last 24 hours 06/06/17 06/06/17 06/06/17 11:09 07:52 04:15 WBC RBC Hgb Hct MCV MCH MCHC RDW Plt Count MPV Neut % (Auto) Lymph % (Auto) [place] % (Auto) Eos % (Auto) Baso % (Auto) Neut # (Auto) Lymph # (Auto) [place] # (Auto) Eos # (Auto) Baso # (Auto) Immature Gran % Nucleated RBC % Immature Gran # Nucleated RBCs # Immature Plt Fraction Sodium Potassium Chloride Carbon Dioxide Anion Gap BUN Creatinine GFR Calculation BUN/Creatinine Ratio Glucose POC Glucose 120 H 90 Calculated Osmolality Calcium Magnesium Total Bilirubin AST ALT Alkaline Phosphatase Lactate Dehydrogenase 242 Total Protein Albumin Globulin Albumin/Globulin Ratio 06/06/17 06/06/17 06/05/17 04:15 04:15 21:38 WBC 4.6 RBC 3.04 L Hgb 8.0 L Hct 24.7 L MCV 81.3 L MCH 26 L MCHC 32.4 RDW 17.1 Plt Count 257 MPV 10.2 Neut % (Auto) 80.0 H Lymph % (Auto) 11.8 L [place] % (Auto) 7.4 Eos % (Auto) 0.2 Baso % (Auto) 0.4 Neut # (Auto) 3.7 Lymph # (Auto) 0.5 L [place] # (Auto) 0.3 Eos # (Auto) 0.0 Baso # (Auto) 0.0 Immature Gran % 0.2 Nucleated RBC % 0.0 Immature Gran # 0.01 Nucleated RBCs # 0.00 Immature Plt Fraction 0.0 Sodium 138 Potassium 4.1 Chloride 100 Carbon Dioxide 37 H Anion Gap 5.1 BUN 25 H Creatinine 1.00 GFR Calculation 54 BUN/Creatinine Ratio 25.00 H Glucose 83 POC Glucose 291 H Calculated Osmolality 277.7 Calcium 9.0 Magnesium 2.0 Total Bilirubin 0.50 AST 34 ALT 18 Alkaline Phosphatase 81 Lactate Dehydrogenase Total Protein 6.6 Albumin 2.2 L Globulin 4.4 H Albumin/Globulin Ratio 0.5 L 06/05/17 06/05/17 18:57 15:07 WBC RBC Hgb Hct MCV MCH MCHC RDW Plt Count MPV Neut % (Auto) Lymph % (Auto) [place] % (Auto) Eos % (Auto) Baso % (Auto) Neut # (Auto) Lymph # (Auto) [place] # (Auto) Eos # (Auto) Baso # (Auto) Immature Gran % Nucleated RBC % Immature Gran # Nucleated RBCs # Immature Plt Fraction Sodium Potassium Chloride Carbon Dioxide Anion Gap BUN Creatinine GFR Calculation BUN/Creatinine Ratio Glucose POC Glucose 271 H 118 H Calculated Osmolality Calcium Magnesium Total Bilirubin AST ALT Alkaline Phosphatase Lactate Dehydrogenase Total Protein Albumin Globulin Albumin/Globulin Ratio DS: Provider Date of admission: 05/29/17 15:07 Primary care physician: Nonstaff Physician Attending physician on admission: Genie Coreas MD Consults: 05/29/17 17:56 Consult to Dietitian [CONS] Routine Reason for Dietitian: Other 05/29/17 17:57 Consult to Physician [CONS] Routine Comment: Consulting Provider: Jose Loera When should Consulting Provider be notified: Barney Person Notified: MIKEY Date Notified: 05/30/17 Time Notified: 08:37 Consult Notification Comment: Direct admit from [facility] Clinic: SOB, increase Fatigue, Anasarca Hx: HTN, DM - does not smoke, use alcohol or drugs Thank You 05/29/17 18:04 Consult to Physician [CONS] Routine Comment: anasarca Consulting Provider: Randell Cruz Person Notified: aware 05/29/17 18:13 Consult to Physician [CONS] Routine Comment: ascites, 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 Consulting Provider: Craig Wheeler Person Notified: Date Notified: 05/30/17 Time Notified: 09:04 06/02/17 10:18 Consult to Physician [CONS] Routine Comment: Ovarian Cancer Consulting Provider: Halbrook,Samy C Person Notified: marilyn Date Notified: 06/02/17 Time Notified: 10:43 06/02/17 10:55 Consult to Physical Therapy [CONS] Routine Reason for Physical Therapy: Evaluate and Treat 06/03/17 13:23 Consult to Physician [CONS] Routine Comment: odessa in am Consulting Provider: Shane Kellogg Person Notified: sarah Date Notified: 06/03/17 Time Notified: 13:29 06/04/17 07:35 Consult to Anesthesiology [CONS] Routine Consulting Provider: Reason for Anesthesiology: Pre-op Clearance Discharging clinician: Anahy Graham MD
[2017-06-06 12:13] VITALS: BP 132/83
[2017-06-06] MEDS ORDERED: HEPARIN LOCK FLUSH 500 UNIT/5 ML SYRINGE IV PRN (15:02)
--- NOTE | 2017-06-06 16:07 | Cardiology Progress Note ---
Familia Faria April, COMFORT, am scribing for, and in the presence of, Valentine Irwin NP 16:06. Assessment and Plan - Time spent with patient Time spent with patient: Greater than 30 minutes (1) Anemia Status: Acute Assessment and plan: SEE PLAN OF CARE LISTED BELOW 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: Yes (2) Enlarged uterus Status: Chronic Assessment and plan: SEE PLAN OF CARE LISTED BELOW 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: Yes (3) Ovarian cancer Status: Acute Assessment and plan: SEE PLAN OF CARE LISTED BELOW 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: Yes (4) Diabetes Status: Chronic Assessment and plan: SEE PLAN OF CARE LISTED BELOW 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: Yes Qualifiers: Diabetes mellitus type: type 2 Chronic kidney disease stage: stage 2 (mild ) (5) Fatigue Status: Chronic Assessment and plan: SEE PLAN OF CARE LISTED BELOW 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: Yes (6) Hypertension Status: Chronic Assessment and plan: SEE PLAN OF CARE LISTED BELOW 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: Yes (7) Anasarca Status: Resolved Assessment and plan: SEE PLAN OF CARE LISTED BELOW 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: Yes (8) Shortness of breath Status: Resolved Assessment and plan: SEE PLAN OF CARE LISTED BELOW 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: Yes Cardiology - PN: Subj Interval history: Valentine Faria NP, personally evaluated, examined patient in the presence of Maryanne Barbosa RN. In detail I discussed patient's plan with Familia as she acted as a scribe. I have reviewed her written documentation and agree with her statements. SUMMARY: Ms. Jolly, 72BF, with risk factors significant for: hypertension, diabetes, sedentary lifestyle. Admitted May 29, 2017 for anasarca, worsening shortness of breath and fatigue. Patient was found to have ovarian cancer most likely developing from the peritoneal lining. Dr. Del Toro is following. Cardiology was consulted for evaluation of cardiac contributions to anasarca, shortness of breath and fatigue. Echocardiogram revealed: EF 65%, grade 1 diastolic dysfunction, mild concentric LVH, moderate MR, moderate TR, large left pleural effusion. There was question as to possible high degree AV block on an EKG but after cardiology reviewed, felt this was not a significant block requiring intervention. JUNE 05, 2017: Patient is followed for chronic, stable conditions to include hypertension, diabetes. She is also followed for more acute conditions to include anasarca, ovarian cancer. Denies chest pain, heaviness, tightness. Denies shortness of breath, PND or orthopnea. Patient underwent implantation Mediport yesterday. She is starting chemotherapy today. Ordering EKG this morning to further explore her rhythm. Blood pressure is stable at this point. She continues to diurese and has lost an additional kilogram overnight. Anemia is worsened overnight. I will further discuss with Dr. Ding and await additional recommendations. June 06, 2017: Ms. Jolly is followed for chronic stable conditions include hypertension diabetes. This morning she is seen sitting up in chair in no acute distress. She denies any chest pain, shortness of breath, palpitations, or dizziness. She did start chemotherapy yesterday, so far she is tolerating this well. Vital signs have been stable. H&H this morning is a little lower at 8.0 and 24.7. 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 REVIEW OF SYSTEMS: Cardiovascular: Denies chest pain, heaviness, tightness. Denies palpitations Pulmonary: Denies shortness of breath, orthopnea or PND Gastrointestinal: Denies nausea, vomiting or diarrhea IMPRESSION/PLAN: 1. ANASARCA - continue diuretics, resolving. Diuresed a significant amount since admission. Echocardiogram reveals no contributions to anasarca 2. OVARIAN CANCER - cytology definitive for ovarian cancer. Dr. Del Toro is following. Patient has undergone Mediport and has started chemotherapy. 3. HYPERTENSION - well controlled. Will adjust medications accordingly during hospital stay 4. DIABETES - blood glucose levels well controlled. 5. ABNORMAL EKG - Sinus rhythm with sinus arrhythmia, intermittent first- degree AV block. 6. ANEMIA - following anemia daily. Exam (Progress Note) - Constitutional Vitals: Period Temp Pulse Resp BP Sys/Galvan Pulse Ox Last 24 Hr 96.5 F-99.0 F 66-99 14-20 112-143/55-86 92-100 Exam: General: Appears well with no apparent distress.Pleasant and cooperative. Appears comfortable. HEENT: PERRL, normocephalic, atraumatic. Mucous membranes moist. No jaundice noted. Conjunctiva moist and clear, sclerae anicteric Neck: No JVD/HJR, no thyromegaly or lymphadenopathy noted. No carotid bruit appreciated Cardiac: Regular rate and rhythm. No obvious murmur rub or gallop. Lungs: clear to auscultation without accessory muscle use to assist the respiratory pattern. Oxygen in use via nasal cannula Abdomen: Protuberant but soft, hypoactive bowel sounds. No abdominal bruit or thrill noted. Musculoskeletal: No fluid collection. Decreased range of motion is noted. Extremities: No clubbing, cyanosis noted. Trace bilateral lower extremity edema noted. Upper extremity pulses 2+. Lower extremity pulses 2+. Capillary refill less than 3 seconds. Skin: No unusual lesions or rashes. No skin breakdown appreciated. Neuro: Awake, alert and oriented 3. Moves all extremities well without hemiparesis or paralysis. No essential tremor is appreciated. Result/EKG - Labs CBC & BMP: 06/06/17 04:15 06/06/17 04:15 Lab Results: I have reviewed the past 24 hour labs Labs: Laboratory Results - last 24 hr 06/05/17 06/05/17 06/05/17 10:36 15:07 18:57 WBC RBC Hgb Hct MCV MCH MCHC RDW Plt Count MPV Neut % (Auto) Lymph % (Auto) [place] % (Auto) Eos % (Auto) Baso % (Auto) Neut # (Auto) Lymph # (Auto) [place] # (Auto) Eos # (Auto) Baso # (Auto) Immature Gran % Nucleated RBC % Immature Gran # Nucleated RBCs # Immature Plt Fraction Sodium Potassium Chloride Carbon Dioxide Anion Gap BUN Creatinine GFR Calculation BUN/Creatinine Ratio Glucose POC Glucose 119 H 118 H 271 H Calculated Osmolality Calcium Magnesium Total Bilirubin AST ALT Alkaline Phosphatase Lactate Dehydrogenase Total Protein Albumin Globulin Albumin/Globulin Ratio 06/05/17 06/06/17 06/06/17 21:38 04:15 04:15 WBC 4.6 RBC 3.04 L Hgb 8.0 L Hct 24.7 L MCV 81.3 L MCH 26 L MCHC 32.4 RDW 17.1 Plt Count 257 MPV 10.2 Neut % (Auto) 80.0 H Lymph % (Auto) 11.8 L [place] % (Auto) 7.4 Eos % (Auto) 0.2 Baso % (Auto) 0.4 Neut # (Auto) 3.7 Lymph # (Auto) 0.5 L [place] # (Auto) 0.3 Eos # (Auto) 0.0 Baso # (Auto) 0.0 Immature Gran % 0.2 Nucleated RBC % 0.0 Immature Gran # 0.01 Nucleated RBCs # 0.00 Immature Plt Fraction 0.0 Sodium 138 Potassium 4.1 Chloride 100 Carbon Dioxide 37 H Anion Gap 5.1 BUN 25 H Creatinine 1.00 GFR Calculation 54 BUN/Creatinine Ratio 25.00 H Glucose 83 POC Glucose 291 H Calculated Osmolality 277.7 Calcium 9.0 Magnesium 2.0 Total Bilirubin 0.50 AST 34 ALT 18 Alkaline Phosphatase 81 Lactate Dehydrogenase Total Protein 6.6 Albumin 2.2 L Globulin 4.4 H Albumin/Globulin Ratio 0.5 L 06/06/17 06/06/17 04:15 07:52 WBC RBC Hgb Hct MCV MCH MCHC RDW Plt Count MPV Neut % (Auto) Lymph % (Auto) [place] % (Auto) Eos % (Auto) Baso % (Auto) Neut # (Auto) Lymph # (Auto) [place] # (Auto) Eos # (Auto) Baso # (Auto) Immature Gran % Nucleated RBC % Immature Gran # Nucleated RBCs # Immature Plt Fraction Sodium Potassium Chloride Carbon Dioxide Anion Gap BUN Creatinine GFR Calculation BUN/Creatinine Ratio Glucose POC Glucose 90 Calculated Osmolality Calcium Magnesium Total Bilirubin AST ALT Alkaline Phosphatase Lactate Dehydrogenase 242 Total Protein Albumin Globulin Albumin/Globulin Ratio - EKG EKG results: interpreted by me EKG shows: sinus rhythm Specialty Discharge - Follow Up or Referrals Follow up with: dr jimmie [Other] - 1 Week Samy Del Toro MD [Physician] - 07/01/17 9:45 am (APPT WITH IS ON AT 945AM FOR LAB AND SEE AT 1145AM HAVE LAB WORK AT OFFICE ON ANYTIME BETWEEN 730AM AND 330PM) I, Valentine Irwin, ILYA, personally performed the services described in this documentation, ascribed by Maryanne Barbosa RN in my presence, and it is both accurate and complete 606 .
== END 2017-06-06 16:10 | disposition home or self-care (01) | DRG 754 ==
LOC: SUATTDRO 15:07 → N.5E 15:47 → SUATTDRO 15:47 → N.4E 06-04 14:37
PROVIDERS: ADMIT Internal Medicine; ATTEND Internal Medicine

== ENCOUNTER 2019-10-04 16:48 | Inpatient (IN) ==
[2019-10-04] MEDS ORDERED: PANTOPRAZOLE 40 MG VIAL IV STA (20:26)
[2019-10-04] MEDS ORDERED: ONDANSETRON 4 MG/2 ML VIAL IV STA (20:26)
[2019-10-04] MEDS ORDERED: SODIUM CHLORIDE 0.9% 1,000 ML IV STA (20:26)
[2019-10-04 20:59] LABS: Alanine Aminotransferase 9 U/L (13-56); Albumin 2.7 G/DL (3.4-5.0); Alkaline Phosphatase 94 U/L (45-117); Amylase 132 U/L (25-115); Aspartate Amino Transferase 36 U/L (0-37); Blood Urea Nitrogen 98 MG/DL (7-18); Calcium 9.7 MG/DL (8.5-10.1); Estimated Glom Filtration Rate 13 ML/MIN; Glucose 203 MG/DL (74-106); Osmolality,Calculated 306.1 MOS/KG (273-304); Total Protein 7.6 G/DL (6.4-8.3); Troponin I < 0.015 NG/ML (0.00-0.045)
[2019-10-04 21:11] LABS: Hematocrit 31.8 VOL% (35.7-47.0); Hemoglobin 9.9 GM/DL (12.0-16.0); Immature Granulocytes % 1.2 %; Immature Granulocytes Absolute 0.05 #; Lymphocytes # 0.2 10*3/uL (1.4-4.0); Mean Corpuscular HGB Conc 31.1 GM/DL (32-36); Mean Corpuscular Volume 99.1 FL (87-102); Mean Platelet Volume 10.9 FL (9.6-12.0); Monocytes % 4.2 % (1.7-12.7); Neutrophils % 90.6 % (38.7-73.9); Platelet Count 148 T/CUMM (130-400); Red Blood Count 3.21 MC/CUMM (3.8-5.5); White Blood Count 4.3 T/CUMM (4-12)
[2019-10-04 21:41] LABS: Acanthocytes 1+; Anisocytosis 2+; Lymphocytes 3 % (20-55); Ovalocytes 1+; Segmented Neutrophils 94 % (50-85); Total Cells Counted 100
[2019-10-04 21:42] LABS: Tear Drop Cells Slight
[2019-10-04] MEDS ORDERED: ONDANSETRON 4 MG/2 ML VIAL IV PRN (23:39)
[2019-10-04] MEDS ORDERED: PROMETHAZINE 25 MG/1 ML VIAL IM PRN (23:39)
[2019-10-05] MEDS ORDERED: SODIUM BICARBONATE 50 MEQ/50 ML VIAL IV ONE (00:01)
[2019-10-05] MEDS: FLUCONAZOLE INJ 100 MG in IV BAG 1 EACH IV SCH (00:35)
[2019-10-05] MEDS: SODIUM CHLORIDE 0.9% 1,000 ML IV SCH ×3 (00:35→20:23)
[2019-10-05] MEDS: NYSTATIN 500,000 UNIT/5 ML UDCUP SWISH/SWAL SCH ×5 (00:45→20:23)
[2019-10-05] MEDS: ENOXAPARIN 30 MG/0.3 ML SYRINGE SUBCUT SCH (00:45)
[2019-10-05 08:09] LABS: Hematocrit 27.9 VOL% (35.7-47.0); Hemoglobin 8.8 GM/DL (12.0-16.0); Immature Granulocytes % 0.8 %; Immature Granulocytes Absolute 0.04 #; Lymphocytes # 0.3 10*3/uL (1.4-4.0); Mean Corpuscular HGB Conc 31.5 GM/DL (32-36); Mean Corpuscular Volume 98.2 FL (87-102); Monocytes % 7.8 % (1.7-12.7); Neutrophils % 85.4 % (38.7-73.9); Platelet Count 134 T/CUMM (130-400); Red Blood Count 2.84 MC/CUMM (3.8-5.5); Red Cell Distribution Width 17.1 % (9.3-17.3)
[2019-10-05 08:40] LABS: Alanine Aminotransferase < 9 U/L (13-56); Albumin 2.4 G/DL (3.4-5.0); Alkaline Phosphatase 84 U/L (45-117); Aspartate Amino Transferase 29 U/L (0-37); Blood Urea Nitrogen 96 MG/DL (7-18); Calcium 8.9 MG/DL (8.5-10.1); Estimated Glom Filtration Rate 17 ML/MIN; Glucose 57 MG/DL (74-106); Osmolality,Calculated 300.8 MOS/KG (273-304); Total Protein 6.7 G/DL (6.4-8.3)
[2019-10-05] MEDS ORDERED: LOPERAMIDE 2 MG CAPSULE PO PRN ×2 (08:48)
[2019-10-05] MEDS ORDERED: chlorproMAZINE INJ 50 MG in SODIUM CHLORIDE 0.9% 100 ML IV PRN (08:48)
[2019-10-05] MEDS ORDERED: MYLANTA/LIDO VISC 2:1 300 ML BOTTLE SWISH/SWAL PRN (08:48)
[2019-10-05] MEDS ORDERED: MAGNESIUM HYDROXIDE SUSP 30 ML UDCUP PO PRN (08:48)
[2019-10-05] MEDS ORDERED: ONDANSETRON 4 MG/2 ML VIAL IV PRN (08:48)
[2019-10-05] MEDS ORDERED: traMADol 50 MG TABLET PO PRN (08:48)
[2019-10-05] MEDS ORDERED: LACTULOSE 20 GM/30 ML UDCUP PO PRN (08:48)
[2019-10-05] MEDS ORDERED: ACETAMINOPHEN 325 MG TABLET PO PRN (08:48)
[2019-10-05] MEDS ORDERED: chlorproMAZINE 25 MG TABLET PO PRN (08:48)
[2019-10-05] MEDS ORDERED: chlorproMAZINE INJ 25 MG in SODIUM CHLORIDE 0.9% 100 ML IV PRN (08:48)
[2019-10-05] MEDS ORDERED: guaiFENesin 200 MG/10 ML UDCUP PO PRN (08:48)
[2019-10-05] MEDS ORDERED: ALUMINUM/MAGNES/SIMETH MAX STR 30 ML UDCUP PO PRN (08:48)
[2019-10-05] MEDS ORDERED: PROMETHAZINE INJ 25 MG in SODIUM CHLORIDE 0.9% 50 ML IV PRN (08:48)
[2019-10-05] MEDS ORDERED: MYLANTA/LIDO VISC 2:1 300 ML BOTTLE SWISH/SPIT PRN (08:48)
[2019-10-05] MEDS ORDERED: BENZTROPINE 2 MG/2 ML AMP IV PRN (08:48)
[2019-10-05] MEDS: MEGESTROL 400 MG/10 ML UDCUP PO SCH ×2 (09:59→20:23)
[2019-10-05 19:30] LABS: Apearance,Urine CLOUDY (Clear); Bilirubin,Urine Negative (Negative); Blood, Urine Negative (Negative); Glucose,Urine (UA) Negative (Negative); Hyaline Casts,Urine 3 /LPF (0-3); Ketones,Urine Negative (Negative); Mucus,Urine Occasional /LPF (Occasional); Nitrite,Urine Negative (Negative); Protein,Urine Negative; RBC,Urine 2 /HPF (0-4); Squamous Epithelial Cell,Urine Occasional /HPF (0-10); Urine Color Yellow (Yellow); Urine Specific Gravity 1.015 (1.001-1.035); Urine Urobilinogen < 2.0 EU/DL (0.2-1.0); WBC,Urine 2 /HPF (0-6)
[2019-10-06] MEDS: FLUCONAZOLE INJ 100 MG in IV BAG 1 EACH IV SCH (00:15)
[2019-10-06] MEDS: ENOXAPARIN 30 MG/0.3 ML SYRINGE SUBCUT SCH (00:15)
[2019-10-06 05:37] LABS: Eosinophils % 0.3 % (0.00-10.9); Hematocrit 23.5 VOL% (35.7-47.0); Hemoglobin 7.4 GM/DL (12.0-16.0); Immature Granulocytes % 0.8 %; Immature Granulocytes Absolute 0.03 #; Lymphocytes # 0.3 10*3/uL (1.4-4.0); Mean Corpuscular HGB Conc 31.5 GM/DL (32-36); Mean Corpuscular Volume 98.7 FL (87-102); Mean Platelet Volume 10.9 FL (9.6-12.0); Monocytes % 7.5 % (1.7-12.7); Neutrophils % 84.4 % (38.7-73.9); Platelet Count 111 T/CUMM (130-400); Red Blood Count 2.38 MC/CUMM (3.8-5.5); Red Cell Distribution Width 17.2 % (9.3-17.3); White Blood Count 3.9 T/CUMM (4-12)
[2019-10-06 06:07] LABS: Alanine Aminotransferase < 9 U/L (13-56); Albumin 2.2 G/DL (3.4-5.0); Alkaline Phosphatase 72 U/L (45-117); Aspartate Amino Transferase 32 U/L (0-37); Bilirubin,Indirect 0.9 MG/DL (0.0-1.0); Blood Urea Nitrogen 72 MG/DL (7-18); Calcium 8.7 MG/DL (8.5-10.1); Estimated Glom Filtration Rate 27 ML/MIN; Glucose 62 MG/DL (74-106); Total Protein 5.9 G/DL (6.4-8.3)
[2019-10-06] MEDS: SODIUM CHLORIDE 0.9% 1,000 ML IV SCH ×2 (08:17→16:53)
[2019-10-06] MEDS: MEGESTROL 400 MG/10 ML UDCUP PO SCH ×2 (08:18→21:39)
[2019-10-06] MEDS: NYSTATIN 500,000 UNIT/5 ML UDCUP SWISH/SWAL SCH ×4 (08:18→21:40)
[2019-10-07] MEDS: FLUCONAZOLE INJ 100 MG in IV BAG 1 EACH IV SCH ×2 (00:43→23:20)
[2019-10-07] MEDS: SODIUM CHLORIDE 0.9% 1,000 ML IV SCH ×2 (03:52→14:45)
[2019-10-07 04:56] LABS: Eosinophils % 0.9 % (0.00-10.9); Hematocrit 25.4 VOL% (35.7-47.0); Hemoglobin 7.8 GM/DL (12.0-16.0); Immature Granulocytes % 0.9 %; Immature Granulocytes Absolute 0.03 #; Lymphocytes # 0.4 10*3/uL (1.4-4.0); Lymphocytes % 10.5 % (21.3-54.2); Mean Corpuscular HGB Conc 30.7 GM/DL (32-36); Mean Platelet Volume 10.5 FL (9.6-12.0); Monocytes % 8.7 % (1.7-12.7); Platelet Count 111 T/CUMM (130-400); Red Blood Count 2.54 MC/CUMM (3.8-5.5); Red Cell Distribution Width 17.2 % (9.3-17.3); White Blood Count 3.3 T/CUMM (4-12)
[2019-10-07 05:45] LABS: Calcium 8.5 MG/DL (8.5-10.1); Osmolality,Calculated 301.4 MOS/KG (273-304)
[2019-10-07] MEDS ORDERED: SODIUM CHLORIDE 0.9% 1,000 ML IV PRN (08:29)
[2019-10-07] MEDS: NYSTATIN 500,000 UNIT/5 ML UDCUP SWISH/SWAL SCH ×4 (11:37→20:13)
[2019-10-07] MEDS: MEGESTROL 400 MG/10 ML UDCUP PO SCH ×2 (11:39→20:13)
[2019-10-07] MEDS: TEMAZEPAM 7.5 MG CAPSULE PO PRN (20:13)
[2019-10-07] MEDS: SODIUM CHLORIDE 0.45% 1,000 ML IV SCH (20:13)
[2019-10-07] MEDS: diphenhydrAMINE CAP 25 MG CAPSULE PO PRN (20:14)
[2019-10-08 04:55] LABS: Eosinophils % 0.5 % (0.00-10.9); Hematocrit 37.5 VOL% (35.7-47.0); Hemoglobin 12.4 GM/DL (12.0-16.0); Immature Granulocytes % 1.5 %; Immature Granulocytes Absolute 0.06 #; Lymphocytes # 0.4 10*3/uL (1.4-4.0); Lymphocytes % 8.7 % (21.3-54.2); Mean Corpuscular HGB Conc 33.1 GM/DL (32-36); Mean Corpuscular Volume 93.3 FL (87-102); Mean Platelet Volume 11.1 FL (9.6-12.0); Monocytes % 10.2 % (1.7-12.7); Neutrophils % 79.1 % (38.7-73.9); Platelet Count 109 T/CUMM (130-400); Red Blood Count 4.02 MC/CUMM (3.8-5.5); Red Cell Distribution Width 16.9 % (9.3-17.3)
[2019-10-08 05:14] LABS: Calcium 8.6 MG/DL (8.5-10.1); Osmolality,Calculated 292.8 MOS/KG (273-304)
[2019-10-08] MEDS ORDERED: DEXTROSE 10% 25 GM/250 ML BAG IV PRN (07:25)
[2019-10-08] MEDS ORDERED: DEXTROSE 10% 250 ML IV ONE (07:44)
[2019-10-08] MEDS: DEXT 5% NACL 0.45% KCL 20 MEQ 20 MEQ/1,000 ML BAG IV SCH ×2 (08:52→21:21)
[2019-10-08] MEDS ORDERED: LIDOCAINE 100 MG/5 ML SYRINGE ONE (09:00)
[2019-10-08] MEDS ORDERED: propofoL 200 MG/20 ML VIAL IV ONE (09:00)
[2019-10-08] MEDS ORDERED: LACTATED RINGERS 1,000 ML IV SCH (09:30)
[2019-10-08] MEDS: MEGESTROL 400 MG/10 ML UDCUP PO SCH ×2 (10:57→21:21)
[2019-10-08] MEDS: NYSTATIN 500,000 UNIT/5 ML UDCUP SWISH/SWAL SCH ×4 (10:57→21:21)
[2019-10-08] MEDS: SODIUM CHLORIDE 0.45% 1,000 ML IV SCH (11:00)
[2019-10-08] MEDS ORDERED: SODIUM CHLORIDE 0.9% 500 ML IV SCH (12:45)
[2019-10-08] MEDS: diphenhydrAMINE CAP 25 MG CAPSULE PO PRN (21:17)
[2019-10-08] MEDS: ALPRAZolam 0.25 MG TABLET PO PRN (21:17)
[2019-10-08] MEDS: TEMAZEPAM 7.5 MG CAPSULE PO PRN (21:18)
[2019-10-09] MEDS: FLUCONAZOLE INJ 100 MG in IV BAG 1 EACH IV SCH (00:26)
[2019-10-09 06:11] LABS: Basophils % 0.2 % (0.0-0.8); Eosinophils # 0.1 10*3/uL (0.0-0.87); Eosinophils % 1.1 % (0.00-10.9); Hematocrit 38.1 VOL% (35.7-47.0); Hemoglobin 12.5 GM/DL (12.0-16.0); Immature Granulocytes % 0.6 %; Immature Granulocytes Absolute 0.03 #; Lymphocytes # 0.4 10*3/uL (1.4-4.0); Lymphocytes % 9.2 % (21.3-54.2); Mean Corpuscular HGB Conc 32.8 GM/DL (32-36); Mean Corpuscular Volume 92.9 FL (87-102); Mean Platelet Volume 10.5 FL (9.6-12.0); Monocytes % 9.9 % (1.7-12.7); Platelet Count 102 T/CUMM (130-400); Red Cell Distribution Width 16.9 % (9.3-17.3); White Blood Count 4.8 T/CUMM (4-12)
[2019-10-09 06:43] LABS: Calcium 8.6 MG/DL (8.5-10.1); Osmolality,Calculated 285.3 MOS/KG (273-304)
[2019-10-09] MEDS: MEGESTROL 400 MG/10 ML UDCUP PO SCH ×2 (09:57→20:40)
[2019-10-09] MEDS: DEXT 5% NACL 0.45% KCL 20 MEQ 20 MEQ/1,000 ML BAG IV SCH (09:58)
[2019-10-09] MEDS: NYSTATIN 500,000 UNIT/5 ML UDCUP SWISH/SWAL SCH ×4 (09:58→20:40)
[2019-10-09] MEDS ORDERED: DEXTROSE 5% NACL 0.45% 1,000 ML IV SCH (10:30)
[2019-10-09] MEDS: SODIUM CHLOR 0.45% KCL 20 MEQ 20 MEQ/1,000 ML BAG IV SCH (16:43)
[2019-10-09] MEDS: diphenhydrAMINE CAP 25 MG CAPSULE PO PRN (20:40)
[2019-10-09] MEDS: TEMAZEPAM 7.5 MG CAPSULE PO PRN (20:40)
[2019-10-09] MEDS: ALPRAZolam 0.25 MG TABLET PO PRN (20:40)
[2019-10-09] MEDS: carvediloL 3.125 MG TABLET PO SCH (21:00)
[2019-10-10] MEDS: FLUCONAZOLE INJ 100 MG in IV BAG 1 EACH IV SCH (00:35)
[2019-10-10 05:36] LABS: Calcium 8.4 MG/DL (8.5-10.1); Osmolality,Calculated 282.3 MOS/KG (273-304)
[2019-10-10] MEDS: carvediloL 3.125 MG TABLET PO SCH ×2 (10:33→16:18)
[2019-10-10] MEDS: NYSTATIN 500,000 UNIT/5 ML UDCUP SWISH/SWAL SCH ×4 (10:33→21:10)
[2019-10-10] MEDS: MEGESTROL 400 MG/10 ML UDCUP PO SCH ×2 (10:33→21:10)
[2019-10-10] MEDS: SODIUM CHLOR 0.45% KCL 20 MEQ 20 MEQ/1,000 ML BAG IV SCH (10:35)
[2019-10-10] MEDS: DIGOXIN 0.125 MG TABLET PO SCH (14:25)
[2019-10-10] MEDS: ALPRAZolam 0.25 MG TABLET PO PRN (21:10)
[2019-10-10] MEDS: diphenhydrAMINE CAP 25 MG CAPSULE PO PRN (21:10)
[2019-10-10] MEDS: TEMAZEPAM 7.5 MG CAPSULE PO PRN (21:10)
[2019-10-11] MEDS: FLUCONAZOLE INJ 100 MG in IV BAG 1 EACH IV SCH (00:02)
[2019-10-11 05:24] LABS: Calcium 8.3 MG/DL (8.5-10.1); Osmolality,Calculated 274.7 MOS/KG (273-304)
[2019-10-11] MEDS: MEGESTROL 400 MG/10 ML UDCUP PO SCH (09:33)
[2019-10-11] MEDS: NYSTATIN 500,000 UNIT/5 ML UDCUP SWISH/SWAL SCH ×4 (09:33→20:56)
[2019-10-11] MEDS: carvediloL 3.125 MG TABLET PO SCH ×2 (09:34→17:36)
[2019-10-11] MEDS: GLUCOSE GEL 15 GM TUBE PO SCH ×4 (10:19→21:01)
[2019-10-11] MEDS: DIGOXIN 0.125 MG TABLET PO SCH (14:09)
[2019-10-11] MEDS ORDERED: HYDROCORTISONE 10 MG TABLET PO SCH (15:00)
[2019-10-11] MEDS: SODIUM CHLOR 0.45% KCL 20 MEQ 20 MEQ/1,000 ML BAG IV SCH (15:02)
[2019-10-11] MEDS: CYPROHEPTADINE 4 MG TABLET PO SCH ×2 (17:36→20:56)
[2019-10-11] MEDS: predniSONE 20 MG TABLET PO SCH (17:42)
[2019-10-11] MEDS: SODIUM BICARBONATE 650 MG TABLET PO SCH (20:56)
[2019-10-11] MEDS ORDERED: MIRTAZAPINE 15 MG TABLET PO SCH (21:00)
[2019-10-12] MEDS: GLUCOSE GEL 15 GM TUBE PO SCH ×3 (00:59→09:27)
[2019-10-12] MEDS: predniSONE 20 MG TABLET PO SCH (09:28)
[2019-10-12] MEDS: SODIUM BICARBONATE 650 MG TABLET PO SCH (09:28)
[2019-10-12] MEDS: carvediloL 3.125 MG TABLET PO SCH (09:28)
[2019-10-12] MEDS: CYPROHEPTADINE 4 MG TABLET PO SCH (09:28)
[2019-10-12] MEDS: NYSTATIN 500,000 UNIT/5 ML UDCUP SWISH/SWAL SCH (09:28)
[2019-10-12 11:46] VITALS: BP 124/87
== END 2019-10-12 13:35 | disposition hospice, home (50) | DRG 754 ==
LOC: N.ED 16:48 → SUATTDRO 23:39 → N.EDINP 23:39 → N.4E 10-05 00:09
PROVIDERS: ADMIT Internal Medicine; ATTEND Family Medicine